=== PATIENT | male | born 1940 | race Caucasian/White ===

== ENCOUNTER 2017-11-15 12:11 | Inpatient (IN) | payer MEDICARE, OTHER ==
[2017-11-15] MEDS ORDERED: IV NORMAL SALINE 1000ML BAG 1,000 ML IV (12:48)
[2017-11-15] MEDS: IV NORMAL SALINE 1000ML BAG 1,000 ML IV ×6 (13:13→23:47)
[2017-11-15 13:21] LABS: ADD MAN DIFF? NO
[2017-11-15 13:28] LABS: BASO % 0 % (0-3); EOS % 0 % (0-3); HEMOGLOBIN 13.2 g/dL (13.0-17.5); LYMPH # 0.4 x10^3/uL (1.0-4.8); LYMPH % 7 % (24-48); MEAN CORPUSCULAR HEMOGLOBIN 30 pg (25-35); MEAN CORPUSCULAR HGB CONC 34 g/dL (31-37); MEAN CORPUSCULAR VOLUME 88 fL (79-100); MONO # 0.8 x10^3/uL (0.0-1.1); MONO % 13 % (0-9); NEUT # 4.9 x10^3uL (1.8-7.7); NEUT % 79 % (31-73); PLATELET COUNT 212 x10^3/uL (140-400); RED BLOOD COUNT 4.45 x10^6/uL (4.30-5.70); RED CELL DISTRIBUTION WIDTH 13.2 % (11.5-14.5); WHITE BLOOD COUNT 6.2 x10^3/uL (4.0-11.0)
[2017-11-15 13:39] LABS: ANION GAP 14 (6-14); BLOOD UREA NITROGEN 27 mg/dL (8-26); BUN/CREATININE RATIO 23 (6-20); CALCIUM 9.5 mg/dL (8.5-10.1); CARBON DIOXIDE 23 mmol/L (21-32); CHLORIDE 98 mmol/L (98-107); CREATININE 1.2 mg/dL (0.7-1.3); GLUCOSE 221 mg/dL (70-99); SODIUM 135 mmol/L (136-145)
[2017-11-15 13:43] LABS: POTASSIUM 4.6 mmol/L (3.5-5.1)
[2017-11-15 13:47] LABS: LACTIC ACID 2.7 mmol/L (0.4-2.0)
[2017-11-15 13:48] LABS: ALBUMIN 3.5 g/dL (3.4-5.0); ALBUMIN/GLOBULIN RATIO 0.9 (1.0-1.7); ALK PHOS 60 U/L (46-116); ALT (SGPT) 39 U/L (16-63); AST (SGOT) 57 U/L (15-37); LIPASE 136 U/L (73-393); TOTAL BILIRUBIN 0.5 mg/dL (0.2-1.0); TOTAL PROTEIN 7.4 g/dL (6.4-8.2)
[2017-11-15 14:34] LABS: BILIRUBIN,URINE NEGATIVE (NEG); CLARITY,URINE CLEAR; COLOR,URINE YELLOW; GLUCOSE,URINE 100 mg/dL (NEG); NITRITE,URINE NEGATIVE (NEG); PH,URINE 5.5; PROTEIN,URINE NEGATIVE (NEG-TRACE); UROBILINOGEN,URINE 0.2 mg/dL (0.2 mg/dL)
[2017-11-15 14:43] LABS: BACTERIA,URINE 0 /HPF (0-FEW); HYALINE CASTS, URINE MODERATE /HPF; RBC,URINE OCC /HPF (0-2); SQUAMOUS EPITHELIAL CELL,UR FEW /LPF; WBC,URINE OCC /HPF (0-4)
[2017-11-15 15:24] LABS: INFLUENZA A PATIENT NEGATIVE (NEGATIVE)
[2017-11-15 15:28] LABS: INFLUENZA B PATIENT POSITIVE (NEGATIVE); OBC FLU VALID
[2017-11-15] MEDS ORDERED: ONDANSETRON PF 4 MG/2 ML VIAL. IV (16:15)
[2017-11-15] MEDS ORDERED: ACETAMINOPHEN 325 MG TABLET. PO (16:15)
[2017-11-15] MEDS: OSELTAMIVIR 75 MG CAPSULE PO (16:54)
[2017-11-15 17:30] LABS: LACTIC ACID 3.7 mmol/L (0.4-2.0)
[2017-11-15 17:49] LABS: POC GLUCOSE 129 mg/dL (70-99)
[2017-11-15] MEDS ORDERED: DEXTROSE 50% 25 GM / 50ML DISP.SYRIN. IV (18:00)
[2017-11-15 21:02] LABS: POC GLUCOSE 178 mg/dL (70-99)
[2017-11-15] MEDS: ATORVASTATIN CALCIUM 20 MG TABLET PO (23:47)
[2017-11-15] MEDS: ENOXAPARIN 40 MG/0.4 ML SYRINGE. SQ (23:49)
[2017-11-16] MEDS: INSULIN DETEMIR 300 UNITS/3 ML INSULN.PEN. SQ ×2 (00:03→21:43)
[2017-11-16 05:33] LABS: ADD MAN DIFF? NO
[2017-11-16 06:25] LABS: BASO % 1 % (0-3); EOS % 1 % (0-3); HEMATOCRIT 32.6 % (39.0-53.0); HEMOGLOBIN 11.3 g/dL (13.0-17.5); LYMPH # 0.9 x10^3/uL (1.0-4.8); LYMPH % 21 % (24-48); MEAN CORPUSCULAR HEMOGLOBIN 31 pg (25-35); MEAN CORPUSCULAR HGB CONC 35 g/dL (31-37); MEAN CORPUSCULAR VOLUME 87 fL (79-100); MONO # 0.7 x10^3/uL (0.0-1.1); MONO % 17 % (0-9); NEUT # 2.6 x10^3uL (1.8-7.7); NEUT % 60 % (31-73); PLATELET COUNT 175 x10^3/uL (140-400); RED BLOOD COUNT 3.72 x10^6/uL (4.30-5.70); RED CELL DISTRIBUTION WIDTH 13.3 % (11.5-14.5); WHITE BLOOD COUNT 4.2 x10^3/uL (4.0-11.0)
[2017-11-16 06:31] LABS: ANION GAP 11 (6-14); BLOOD UREA NITROGEN 19 mg/dL (8-26); CALCIUM 8.3 mg/dL (8.5-10.1); CARBON DIOXIDE 25 mmol/L (21-32); CHLORIDE 102 mmol/L (98-107); CREATININE 1.1 mg/dL (0.7-1.3); GFR 65.3; GLUCOSE 146 mg/dL (70-99); POTASSIUM 3.3 mmol/L (3.5-5.1); SODIUM 138 mmol/L (136-145)
[2017-11-16 08:06] LABS: POC GLUCOSE 133 mg/dL (70-99)
[2017-11-16] MEDS: LISINOPRIL 20 MG TABLET PO (08:44)
[2017-11-16] MEDS: hydroCHLOROthiazide 25 MG TABLET PO (08:44)
[2017-11-16] MEDS: glipiZIDE 5 MG TABLET PO ×2 (08:45→17:34)
[2017-11-16] MEDS: FINASTERIDE 5 MG TABLET. PO (08:45)
[2017-11-16] MEDS: PANTOPRAZOLE 40 MG TABLET.DR. PO (08:46)
[2017-11-16] MEDS: OSELTAMIVIR 75 MG CAPSULE PO ×2 (08:46→19:56)
[2017-11-16] MEDS: IV NORMAL SALINE 1000ML BAG 1,000 ML IV ×2 (08:47→12:10)
[2017-11-16 12:05] LABS: POC GLUCOSE 91 mg/dL (70-99)
[2017-11-16 16:05] LABS: POC GLUCOSE 106 mg/dL (70-99)
[2017-11-16] MEDS: ATORVASTATIN CALCIUM 20 MG TABLET PO (19:57)
[2017-11-16] MEDS: BENZONATATE 100 MG CAPSULE. PO (19:57)
[2017-11-16] MEDS: ENOXAPARIN 40 MG/0.4 ML SYRINGE. SQ (19:57)
[2017-11-16 21:08] LABS: POC GLUCOSE 114 mg/dL (70-99)
[2017-11-17 05:02] LABS: ADD MAN DIFF? NO
[2017-11-17 05:36] LABS: BASO % 0 % (0-3); EOS # 0.1 x10^3/uL (0.0-0.7); EOS % 2 % (0-3); HEMOGLOBIN 11.9 g/dL (13.0-17.5); LYMPH # 1.2 x10^3/uL (1.0-4.8); LYMPH % 29 % (24-48); MEAN CORPUSCULAR HEMOGLOBIN 30 pg (25-35); MEAN CORPUSCULAR HGB CONC 35 g/dL (31-37); MEAN CORPUSCULAR VOLUME 87 fL (79-100); MONO # 0.5 x10^3/uL (0.0-1.1); MONO % 12 % (0-9); NEUT # 2.3 x10^3uL (1.8-7.7); NEUT % 58 % (31-73); PLATELET COUNT 176 x10^3/uL (140-400); RED BLOOD COUNT 3.92 x10^6/uL (4.30-5.70); RED CELL DISTRIBUTION WIDTH 13.6 % (11.5-14.5)
[2017-11-17 05:47] LABS: ANION GAP 12 (6-14); BLOOD UREA NITROGEN 15 mg/dL (8-26); CALCIUM 8.5 mg/dL (8.5-10.1); CARBON DIOXIDE 24 mmol/L (21-32); CHLORIDE 103 mmol/L (98-107); GFR 72.8; GLUCOSE 76 mg/dL (70-99); SODIUM 139 mmol/L (136-145)
[2017-11-17 07:32] LABS: POC GLUCOSE 91 mg/dL (70-99)
[2017-11-17] MEDS: PANTOPRAZOLE 40 MG TABLET.DR. PO (08:39)
[2017-11-17] MEDS: glipiZIDE 5 MG TABLET PO ×2 (08:39→16:59)
[2017-11-17] MEDS: hydroCHLOROthiazide 25 MG TABLET PO (08:42)
[2017-11-17] MEDS: OSELTAMIVIR 75 MG CAPSULE PO ×2 (08:43→20:40)
[2017-11-17] MEDS: FINASTERIDE 5 MG TABLET. PO (08:43)
[2017-11-17] MEDS: LISINOPRIL 20 MG TABLET PO (08:43)
[2017-11-17 12:07] LABS: POC GLUCOSE 102 mg/dL (70-99)
[2017-11-17] MEDS: IPRATRPIUM/ALBUTEROL 0.5/2.5MG 3 ML NEBU. NEB ×2 (15:54→20:19)
[2017-11-17 16:55] LABS: POC GLUCOSE 124 mg/dL (70-99)
[2017-11-17] MEDS: POTASSIUM CHLORIDE 20 MEQ TABLET.ER. PO (16:59)
[2017-11-17] MEDS: ATORVASTATIN CALCIUM 20 MG TABLET PO (20:40)
[2017-11-17] MEDS: ENOXAPARIN 40 MG/0.4 ML SYRINGE. SQ (20:40)
[2017-11-17 20:41] LABS: POC GLUCOSE 162 mg/dL (70-99)
[2017-11-17] MEDS: PHENYLEPH/MINERAL OIL/PETROLAT RECTAL OINTMENT 28GM TUBE. RC (20:41)
[2017-11-17] MEDS: INSULIN DETEMIR 300 UNITS/3 ML INSULN.PEN. SQ (20:45)
[2017-11-18 05:20] LABS: ADD MAN DIFF? NO
[2017-11-18 05:36] LABS: BASO % 0 % (0-3); EOS % 1 % (0-3); HEMATOCRIT 37.7 % (39.0-53.0); HEMOGLOBIN 12.9 g/dL (13.0-17.5); LYMPH # 0.9 x10^3/uL (1.0-4.8); LYMPH % 25 % (24-48); MEAN CORPUSCULAR HEMOGLOBIN 30 pg (25-35); MEAN CORPUSCULAR HGB CONC 34 g/dL (31-37); MEAN CORPUSCULAR VOLUME 87 fL (79-100); MONO # 0.4 x10^3/uL (0.0-1.1); MONO % 12 % (0-9); NEUT # 2.4 x10^3uL (1.8-7.7); NEUT % 63 % (31-73); PLATELET COUNT 201 x10^3/uL (140-400); RED BLOOD COUNT 4.32 x10^6/uL (4.30-5.70); RED CELL DISTRIBUTION WIDTH 13.3 % (11.5-14.5); WHITE BLOOD COUNT 3.8 x10^3/uL (4.0-11.0)
[2017-11-18 05:47] LABS: ANION GAP 10 (6-14); BLOOD UREA NITROGEN 17 mg/dL (8-26); CALCIUM 8.5 mg/dL (8.5-10.1); CARBON DIOXIDE 26 mmol/L (21-32); CHLORIDE 98 mmol/L (98-107); CREATININE 1.1 mg/dL (0.7-1.3); GFR 65.3; GLUCOSE 165 mg/dL (70-99); POTASSIUM 3.6 mmol/L (3.5-5.1); SODIUM 134 mmol/L (136-145)
[2017-11-18] MEDS: IPRATRPIUM/ALBUTEROL 0.5/2.5MG 3 ML NEBU. NEB ×2 (07:22→11:31)
[2017-11-18 07:28] LABS: POC GLUCOSE 130 mg/dL (70-99)
[2017-11-18] MEDS: OSELTAMIVIR 75 MG CAPSULE PO (08:36)
[2017-11-18] MEDS: FINASTERIDE 5 MG TABLET. PO (08:36)
[2017-11-18] MEDS: hydroCHLOROthiazide 25 MG TABLET PO (08:36)
[2017-11-18] MEDS: glipiZIDE 5 MG TABLET PO (08:39)
[2017-11-18] MEDS: LISINOPRIL 20 MG TABLET PO (08:39)
[2017-11-18] MEDS: PANTOPRAZOLE 40 MG TABLET.DR. PO (08:40)
== END 2017-11-18 12:34 | disposition home or self-care (01) | DRG 872 ==
LOC: ER 12:11 → 6 SOUTH 14:52
DX: A41.9 Sepsis, unspecified organism (principal); E86.0 Dehydration; E11.9 Type 2 diabetes mellitus without complications; J10.1 Influenza due to other identified influenza virus with other respiratory manifestations; E66.9 Obesity, unspecified; I10 Essential (primary) hypertension; N40.0 Benign prostatic hyperplasia without lower urinary tract symptoms; Z68.31 Body mass index [BMI] 31.0-31.9, adult; Z96.659 Presence of unspecified artificial knee joint; M54.5 Low back pain
CPT/HCPCS: 36415; 71045; 80048; 80053; 81001; 82962; 83605; 83690; 85025; 87040; 87804; 87804-59; 93005; 94640; 94760; 96360; 97161-GP; 97165-GO; 99285-25; J1650; J1815; J7030; J7620

== ENCOUNTER 2018-01-20 10:25 | Emergency (ER) | payer MEDICARE, OTHER | END 2018-01-20 13:38 | disposition home or self-care (01) | LOC: ER 10:25 | DX: S22.31XA Fracture of one rib, right side, initial encounter for closed fracture (principal); E11.9 Type 2 diabetes mellitus without complications; E78.00 Pure hypercholesterolemia, unspecified; I10 Essential (primary) hypertension; Z96.659 Presence of unspecified artificial knee joint; W01.198A Fall on same level from slipping, tripping and stumbling with subsequent striking against other object, initial encounter; Y93.89 Activity, other specified; Y92.89 Other specified places as the place of occurrence of the external cause; Y99.8 Other external cause status | CPT/HCPCS: 71101; 99284-25 ==

== ENCOUNTER → 2018-01-27 | Outpatient (CLI) | payer MEDICARE, OTHER ==
[2018-01-27 14:21] LABS: ADD MAN DIFF? NO
[2018-01-27 14:32] LABS: BILIRUBIN,URINE NEGATIVE (NEG); CLARITY,URINE CLEAR; COLOR,URINE YELLOW; GLUCOSE,URINE 500 mg/dL (NEG); NITRITE,URINE NEGATIVE (NEG); PH,URINE 5.5; PROTEIN,URINE NEGATIVE (NEG-TRACE); UROBILINOGEN,URINE 0.2 mg/dL (0.2 mg/dL)
[2018-01-27 14:36] LABS: BASO % 0 % (0-3); EOS # 0.1 x10^3/uL (0.0-0.7); EOS % 1 % (0-3); HEMATOCRIT 38.1 % (39.0-53.0); HEMOGLOBIN 13.2 g/dL (13.0-17.5); LYMPH # 1.8 x10^3/uL (1.0-4.8); LYMPH % 21 % (24-48); MEAN CORPUSCULAR HEMOGLOBIN 30 pg (25-35); MEAN CORPUSCULAR HGB CONC 35 g/dL (31-37); MEAN CORPUSCULAR VOLUME 88 fL (79-100); MONO # 0.7 x10^3/uL (0.0-1.1); MONO % 8 % (0-9); NEUT # 6.2 x10^3uL (1.8-7.7); NEUT % 70 % (31-73); PLATELET COUNT 287 x10^3/uL (140-400); RED BLOOD COUNT 4.34 x10^6/uL (4.30-5.70); RED CELL DISTRIBUTION WIDTH 13.1 % (11.5-14.5); WHITE BLOOD COUNT 8.8 x10^3/uL (4.0-11.0)
[2018-01-27 14:41] LABS: ALBUMIN 3.4 g/dL (3.4-5.0); ANION GAP 12 (6-14); BLOOD UREA NITROGEN 28 mg/dL (8-26); CALCIUM 8.7 mg/dL (8.5-10.1); CARBON DIOXIDE 24 mmol/L (21-32); CHLORIDE 101 mmol/L (98-107); CREATININE 1.3 mg/dL (0.7-1.3); GFR 53.8; GLUCOSE 336 mg/dL (70-99); POTASSIUM 4.3 mmol/L (3.5-5.1); SODIUM 137 mmol/L (136-145)
[2018-01-27 14:49] LABS: INR 1.1 (0.8-1.1); PARTIAL THROMBOPLASTIN TIME 32 SEC (24-38); PROTHROMBIN TIME PATIENT 14.1 SEC (11.7-14.0)
[2018-01-27 14:51] LABS: BACTERIA,URINE 0 /HPF (0-FEW); RBC,URINE 0 /HPF (0-2); SQUAMOUS EPITHELIAL CELL,UR OCC /LPF; WBC,URINE OCC /HPF (0-4)
[2018-01-27 15:54] LABS: SEDIMENTATION RATE 30 (0-15)
[2018-01-29 04:20] LABS: HEMOGLOBIN A1C 8.2 % (4.8-5.6)
[2018-01-29 06:21] LABS: MRSA BY PCR Negative (Negative)
== END | disposition home or self-care (01) ==
LOC: SURGPAT 13:56
DX: Z01.818 Encounter for other preprocedural examination (principal); M17.11 Unilateral primary osteoarthritis, right knee; E55.9 Vitamin D deficiency, unspecified; R79.89 Other specified abnormal findings of blood chemistry; R79.1 Abnormal coagulation profile
CPT/HCPCS: 36415; 80048; 81001; 82040; 82306; 83036; 85025; 85610; 85651; 85730; 87641

== ENCOUNTER 2018-02-11 06:56 | Inpatient (IN) | payer MEDICARE, OTHER ==
[2018-02-11] MEDS: HYDROcodone/APAP 7.5/325MG 1 TAB TABLET PO (06:45)
[2018-02-11] MEDS ORDERED: LIDOCAINE 1% PF 2 ML VIAL. ID (07:00)
[2018-02-11] MEDS ORDERED: MORPHINE SULFATE 2 MG/ML DISP.SYRIN. IV (07:00)
[2018-02-11] MEDS ORDERED: fentaNYL PF VIAL 100 MCG/2 ML VIAL IV ×3 (07:00→12:15)
[2018-02-11] MEDS ORDERED: HYDROmorphone 2 MG/ML VIAL IV (07:00)
[2018-02-11] MEDS ORDERED: ONDANSETRON PF 4 MG/2 ML VIAL. IV (07:00)
[2018-02-11] MEDS: IV RINGERS,LACTATED 1000ML 1,000 ML IV ×2 (07:58→12:13)
[2018-02-11] MEDS ORDERED: PROPOFOL 20 ML IV (08:01)
[2018-02-11] MEDS ORDERED: LIDOCAINE 2% PF Vial for OR 5 ML VIAL. (08:01)
[2018-02-11 08:02] LABS: POC GLUCOSE 158 mg/dL (70-99)
[2018-02-11] MEDS: CELECOXIB 200 MG CAPSULE. PO ×3 (09:00→21:00)
[2018-02-11] MEDS: TRANEXAMIC ACID 1,000 MG in IV NORMAL SALINE 50ML 50 ML INJ ×2 (10:01→11:10)
[2018-02-11] MEDS ORDERED: ONDANSETRON PF 4 MG/2 ML VIAL. (10:12)
[2018-02-11] MEDS: VANCOMYCIN 1 GM VIAL. (10:12)
[2018-02-11] MEDS: TOBRAMYCIN POWDER 1.2 GM VIAL. (10:12)
[2018-02-11] MEDS ORDERED: fentaNYL PF VIAL 100 MCG/2 ML VIAL (10:12)
[2018-02-11] MEDS: MORPHINE SULFATE 5 MG, KETOROLAC 30 MG, ROPIVacaine 0.5% PF 60 ML, EPINEPHrine 0.5 MG i... INT ART (10:12)
[2018-02-11] MEDS ORDERED: DEXAMETHASONE SOD PHOS 20 MG/5 ML VIAL. (10:12)
[2018-02-11] MEDS ORDERED: SEVOFLURANE > 120 MINUTES. IH (11:32)
[2018-02-11 12:08] LABS: POC GLUCOSE 202 mg/dL (70-99)
[2018-02-11] MEDS ORDERED: PROCHLORPERAZINE 5 MG TABLET. PO (12:15)
[2018-02-11] MEDS ORDERED: PROCHLORPERAZINE 10 MG/2 ML VIAL. IV (12:15)
[2018-02-11] MEDS ORDERED: traMADol 50 MG TABLET PO ×2 (12:15)
[2018-02-11] MEDS ORDERED: 0.9 % SODIUM CHLORIDE 10 ML DISP.SYRIN. IV (12:15)
[2018-02-11] MEDS ORDERED: METOCLOPRAMIDE HCL 10 MG/2 ML VIAL. IV (12:15)
[2018-02-11] MEDS ORDERED: MORPHINE SULFATE 4 MG/ML DISP.SYRIN. IV ×3 (12:15)
[2018-02-11] MEDS ORDERED: DEXTROSE 50% 25 GM / 50ML DISP.SYRIN. IV ×2 (12:15→19:00)
[2018-02-11] MEDS ORDERED: oxyCODONE/APAP 5/325 1 TAB TABLET PO (12:15)
[2018-02-11] MEDS ORDERED: MORPHINE SULFATE 10 MG/ML VIAL. IV (12:15)
[2018-02-11] MEDS ORDERED: ACETAMINOPHEN 325 MG TABLET. PO (12:15)
[2018-02-11] MEDS ORDERED: HYDROcodone/APAP 10/325 1 TAB TABLET PO (12:15)
[2018-02-11] MEDS ORDERED: CALCIUM CARBONATE 500 MG TAB.CHEW PO (12:15)
[2018-02-11] MEDS ORDERED: diphenhydrAMINE 50 MG/ML VIAL IV (12:15)
[2018-02-11] MEDS: PROCHLORPERAZINE 10 MG/2 ML VIAL. IV (12:34)
[2018-02-11] MEDS: fentaNYL PF VIAL 100 MCG/2 ML VIAL IV ×2 (12:35→13:23)
[2018-02-11] MEDS: IV DEXTROSE 5 %-0.45 % NACL 1,000 ML IV (14:39)
[2018-02-11 16:31] LABS: POC GLUCOSE 301 mg/dL (70-99)
[2018-02-11] MEDS: FERROUS SULFATE 325 MG TABLET. PO (17:00)
[2018-02-11] MEDS: glipiZIDE 5 MG TABLET PO (17:01)
[2018-02-11] MEDS: KETOROLAC 30 MG, BUPIVACAINE MPF 0.25% 20 ML, EPINEPHrine 0.5 MG in TOTAL VOLUME SYRING... INT ART (17:51)
[2018-02-11] MEDS: oxyCODONE/APAP 7.5/325 1 TAB TABLET PO ×2 (17:55→23:21)
[2018-02-11 20:49] LABS: POC GLUCOSE 289 mg/dL (70-99)
[2018-02-11] MEDS: ASPIRIN ENTERIC COATED 325 MG TABLET.DR. PO (20:54)
[2018-02-11] MEDS: INSULIN GLARGINE 300 UNITS/3 ML INSULN.PEN. SQ (20:59)
[2018-02-12] MEDS: IV DEXTROSE 5 %-0.45 % NACL 1,000 ML IV ×3 (01:00→21:00)
[2018-02-12 05:25] LABS: HEMATOCRIT 31.4 % (39.0-53.0); HEMOGLOBIN 10.7 g/dL (13.0-17.5); MEAN CORPUSCULAR HGB CONC 34 g/dL (31-37)
[2018-02-12] MEDS: KETOROLAC 30 MG, BUPIVACAINE MPF 0.25% 20 ML, EPINEPHrine 0.5 MG in TOTAL VOLUME SYRING... INT ART (05:54)
[2018-02-12] MEDS ORDERED: MAGNESIUM HYDROXIDE 2,400 MG/30 ML ORAL.SUSP. PO (06:00)
[2018-02-12 06:48] LABS: POC GLUCOSE 151 mg/dL (70-99)
[2018-02-12] MEDS: CELECOXIB 200 MG CAPSULE. PO ×3 (07:12→21:12)
[2018-02-12] MEDS: PANTOPRAZOLE 40 MG TABLET.DR. PO (07:13)
[2018-02-12] MEDS: glipiZIDE 5 MG TABLET PO ×2 (07:33→17:04)
[2018-02-12] MEDS: FERROUS SULFATE 325 MG TABLET. PO ×2 (07:33→17:03)
[2018-02-12] MEDS: ASPIRIN ENTERIC COATED 325 MG TABLET.DR. PO ×2 (07:33→21:11)
[2018-02-12] MEDS: FLUTICASONE 50MCG/NASAL SPRAY 16GM BOTTLE. NS (07:35)
[2018-02-12] MEDS: INSULIN LISPRO 300 UNITS/3 ML INSULN.PEN. SQ ×3 (07:38→17:00)
[2018-02-12] MEDS: oxyCODONE/APAP 7.5/325 1 TAB TABLET PO ×4 (08:48→21:11)
[2018-02-12] MEDS: CETIRIZINE HCL 10 MG TABLET. PO (08:49)
[2018-02-12] MEDS: FINASTERIDE 5 MG TABLET. PO (08:49)
[2018-02-12] MEDS: MULTIVITAMIN with MINERAL TABLET. PO (08:49)
[2018-02-12] MEDS: SENNOSIDES/DOCUSATE 8.6/50MG TABLET. PO (08:49)
[2018-02-12] MEDS: ATORVASTATIN CALCIUM 20 MG TABLET PO (08:49)
[2018-02-12 11:39] LABS: POC GLUCOSE 106 mg/dL (70-99)
[2018-02-12] MEDS: hydroCHLOROthiazide 25 MG TABLET PO (12:41)
[2018-02-12] MEDS: LISINOPRIL 20 MG TABLET PO (12:41)
[2018-02-12] MEDS ORDERED: BISACODYL 10 MG SUPP.RECT. PR (16:00)
[2018-02-12 16:56] LABS: POC GLUCOSE 126 mg/dL (70-99)
[2018-02-12 21:17] LABS: POC GLUCOSE 112 mg/dL (70-99)
[2018-02-12] MEDS: INSULIN GLARGINE 300 UNITS/3 ML INSULN.PEN. SQ (21:21)
[2018-02-13] MEDS: IV DEXTROSE 5 %-0.45 % NACL 1,000 ML IV (02:58)
[2018-02-13] MEDS: oxyCODONE/APAP 7.5/325 1 TAB TABLET PO (03:43)
[2018-02-13 04:43] LABS: HEMATOCRIT 29.6 % (39.0-53.0); HEMOGLOBIN 10.4 g/dL (13.0-17.5); MEAN CORPUSCULAR HGB CONC 35 g/dL (31-37)
[2018-02-13] MEDS: glipiZIDE 5 MG TABLET PO ×2 (07:30→16:46)
[2018-02-13] MEDS: PANTOPRAZOLE 40 MG TABLET.DR. PO (07:30)
[2018-02-13] MEDS: INSULIN LISPRO 300 UNITS/3 ML INSULN.PEN. SQ ×3 (08:00→17:28)
[2018-02-13] MEDS: FERROUS SULFATE 325 MG TABLET. PO ×2 (08:00→16:43)
[2018-02-13 08:13] LABS: POC GLUCOSE 93 mg/dL (70-99)
[2018-02-13] MEDS: ASPIRIN ENTERIC COATED 325 MG TABLET.DR. PO ×2 (09:00→20:49)
[2018-02-13] MEDS: FINASTERIDE 5 MG TABLET. PO (09:00)
[2018-02-13] MEDS: SENNOSIDES/DOCUSATE 8.6/50MG TABLET. PO (09:00)
[2018-02-13] MEDS: hydroCHLOROthiazide 25 MG TABLET PO ×2 (09:00)
[2018-02-13] MEDS: ATORVASTATIN CALCIUM 20 MG TABLET PO (09:00)
[2018-02-13] MEDS: MULTIVITAMIN with MINERAL TABLET. PO (09:00)
[2018-02-13] MEDS: FLUTICASONE 50MCG/NASAL SPRAY 16GM BOTTLE. NS (09:00)
[2018-02-13] MEDS: LISINOPRIL 20 MG TABLET PO (09:00)
[2018-02-13] MEDS: CETIRIZINE HCL 10 MG TABLET. PO (09:00)
[2018-02-13] MEDS: CELECOXIB 200 MG CAPSULE. PO ×2 (09:00→20:48)
[2018-02-13 11:43] LABS: POC GLUCOSE 130 mg/dL (70-99)
[2018-02-13] MEDS: HYDROcodone/APAP 7.5/325MG 1 TAB TABLET PO ×2 (12:59→20:49)
[2018-02-13 16:47] LABS: POC GLUCOSE 153 mg/dL (70-99)
[2018-02-13] MEDS: ZOLPIDEM 5 MG TABLET. PO (20:48)
[2018-02-13] MEDS: INSULIN GLARGINE 300 UNITS/3 ML INSULN.PEN. SQ (20:53)
[2018-02-13 20:56] LABS: POC GLUCOSE 168 mg/dL (70-99)
[2018-02-14 04:33] LABS: HEMOGLOBIN 10.4 g/dL (13.0-17.5); MEAN CORPUSCULAR HGB CONC 35 g/dL (31-37)
[2018-02-14 07:04] LABS: POC GLUCOSE 92 mg/dL (70-99)
[2018-02-14] MEDS: INSULIN LISPRO 300 UNITS/3 ML INSULN.PEN. SQ ×2 (08:00→12:00)
[2018-02-14] MEDS: FLUTICASONE 50MCG/NASAL SPRAY 16GM BOTTLE. NS (08:00)
[2018-02-14] MEDS: SENNOSIDES/DOCUSATE 8.6/50MG TABLET. PO (08:00)
[2018-02-14] MEDS: glipiZIDE 5 MG TABLET PO (08:01)
[2018-02-14] MEDS: CETIRIZINE HCL 10 MG TABLET. PO (08:01)
[2018-02-14] MEDS: MULTIVITAMIN with MINERAL TABLET. PO (08:01)
[2018-02-14] MEDS: CELECOXIB 200 MG CAPSULE. PO (08:01)
[2018-02-14] MEDS: ATORVASTATIN CALCIUM 20 MG TABLET PO (08:02)
[2018-02-14] MEDS: FINASTERIDE 5 MG TABLET. PO (08:02)
[2018-02-14] MEDS: hydroCHLOROthiazide 25 MG TABLET PO (08:02)
[2018-02-14] MEDS: PANTOPRAZOLE 40 MG TABLET.DR. PO (08:02)
[2018-02-14] MEDS: FERROUS SULFATE 325 MG TABLET. PO (08:02)
[2018-02-14] MEDS: ASPIRIN ENTERIC COATED 325 MG TABLET.DR. PO (08:02)
[2018-02-14] MEDS: oxyCODONE/APAP 7.5/325 1 TAB TABLET PO ×2 (09:41→12:52)
[2018-02-14] MEDS: MAGNESIUM HYDROXIDE 2,400 MG/30 ML ORAL.SUSP. PO (10:30)
[2018-02-14] MEDS: LISINOPRIL 20 MG TABLET PO (12:52)
== END 2018-02-14 14:42 | disposition home or self-care (01) | DRG 470 ==
LOC: OPSVCIP 06:56 → 4 SOUTHEST 13:25
PROVIDERS: Orthopaedic Surgery
PROC: 0SRC0J9 Replacement of Right Knee Joint with Synthetic Substitute, Cemented, Open Approach (ICD-10-PCS; principal; 2018-02-11 09:35)
DX: M17.11 Unilateral primary osteoarthritis, right knee (principal); E11.9 Type 2 diabetes mellitus without complications; I10 Essential (primary) hypertension
CPT/HCPCS: 36415; 73560; 82962; 85014; 85018; 86850; 86900; 86901; 88305; 88311; 97110-GO; 97116-GP; 97150-GP; 97162-GP; 97165-GO; 97530-GP; 97535-GO; A7015; C1713; J0171; J0690; J0780; J1100; J1815; J1885; J2270; J2405; J2704; J2795; J3010; J3260; J3370; J3490; J7030; J7120

== ENCOUNTER 2018-08-27 13:34 | Emergency (ER) | payer MEDICARE, OTHER ==
[~2018-08-27] VITALS: Ht 190.5 cm; Wt 113.4 kg
[~2018-08-27 13:34] MED LIST: ASPI325T11 PO; CELE200C PO; CEPH-264 PO; CETI10TA22 PO; CHOL500016 PO; ERGO500027 PO; FERR325T14 PO; FINA5TAB4 PO; FLUT9.9S NS; GLIP10TA13 PO; HYDR-3164 PO; INSU100I13 SQ; LISI1TAB7 PO; LOVA40TA2 PO; METF10007 PO; OMEP20TA8 PO; OSEL75CA PO; OXYC-323 PO; PHEN-318 PO
--- NOTE | 2018-08-27 14:12 | PHYS DOC ---
Past Medical History Past Medical History: Diabetes-Type II, High Cholesterol, Hypertension Past Surgical History: Knee Replacement, Other Additional Past Surgical Histo: PARATHYROID GLAND REMOVAL,TOE Alcohol Use: None Drug Use: None Adult General Chief Complaint Chief Complaint: MECHANICAL FALL HPI HPI Patient is a 77 year old male who presents with was doing yard work this afternoon when he was pulling a limb out of a tree and the branch gave way and he fell backward and hit his head on gravel. Patient states he does not know if he has LOC the fall was unwitnessed. Patient denies blood thinners. He is ambulatory with a steady gait. Patient only complains of head pain a 1 out of 10. He does have a 0.5 cm puncture from a piece of gravel to the mid back of his head there are no foreign bodies seen and patient's states that she did wash it out. Review of Systems Review of Systems Constitutional: Denies fever or chills [] Eyes: Denies change in visual acuity, redness, or eye pain [] HENT: Denies nasal congestion or sore throat [] Respiratory: Denies cough or shortness of breath [] Cardiovascular: No additional information not addressed in HPI [] GI: Denies abdominal pain, nausea, vomiting, bloody stools or diarrhea [] : Denies dysuria or hematuria [] Musculoskeletal: Denies back pain or joint pain [] Integument: 0.5cm puncture from a piece of gravel to the back of head. Small pink abrasion to right flank. Denies rash or skin lesions [] Neurologic: Headache. Denies focal weakness or sensory changes [] All other systems were reviewed and found to be within normal limits, except as documented in this note. Allergies Allergies Allergies Coded Allergies Type Severity Reaction Last Updated Verified No Known Drug Allergies 02/11/18 No Physical Exam Physical Exam Constitutional: Well developed, well nourished, no acute distress, non-toxic appearance. [] HENT: Normocephalic, atraumatic, bilateral external ears normal, oropharynx moist, no oral exudates, nose normal. [] Eyes: PERRLA, EOMI, conjunctiva normal, no discharge. [] Neck: Normal range of motion, no tenderness, supple, no stridor. [] Cardiovascular:Heart rate regular rhythm, no murmur [] Lungs & Thorax: Bilateral breath sounds clear to auscultation [] Abdomen: Bowel sounds normal, soft, no tenderness, no masses, no pulsatile masses. [] Skin: 0.5cm puncture wound to back of head with scant bleeding, pink abrasion to right flank. Warm, dry, no erythema, no rash. [] Back: No tenderness, no CVA tenderness. [] Extremities: No tenderness, no cyanosis, no clubbing, ROM intact, no edema. [] Neurologic: Alert and oriented X 3, normal motor function, normal sensory function, no focal deficits noted. [] Psychologic: Affect normal, judgement normal, mood normal. [] Current Patient Data Vital Signs Vital Signs Date Time Temp Pulse Resp B/P (MAP) Pulse Ox O2 Delivery O2 Flow Rate FiO2 08/27/18 15:30 88 20 96 08/27/18 13:55 97.7 126/81 (96) Room Air 97.7 Lab Values Laboratory Tests Test 08/27/18 16:00 Urine Collection Type Void Urine Color Yellow Urine Clarity Cloudy Urine pH 7.0 Urine Specific [place] 1.015 Urine Protein Negative mg/dL (NEG-TRACE) Urine Glucose (UA) Negative mg/dL (NEG) Urine Ketones (Stick) Negative mg/dL (NEG) Urine Blood Negative (NEG) Urine Nitrite Negative (NEG) Urine Bilirubin Negative (NEG) Urine Urobilinogen Dipstick 0.2 mg/dL (0.2 mg/dL) Urine Leukocyte Esterase Negative (NEG) Urine RBC 0 /HPF (0-2) Urine WBC Occ /HPF (0-4) Urine Squamous Epithelial Cells Few /LPF Urine Bacteria Few /HPF (0-FEW) Urine Mucus Slight /LPF EKG EKG [] Radiology/Procedures Radiology/Procedures ct head cervical spine Impressions: [facility] [address] [place], [place] [id number] IMAGING REPORT Signed PATIENT: ANA LUISA SANDOVAL ACCOUNT: [id number] : 1940 LOCATION: ER AGE: 77 SEX: M EXAM STATUS: REG ER ORD. PHYSICIAN: BIANCA ZAMORA SIGNAL MAINTAINER REASON: FALL BACKWARD, UNWITNESSED, HIT HEAD, UNSURE OF LOC PROCEDURE: CT HEAD AND CERVICAL SPINE WO CT of the head without contrast, 08/27/2018: HISTORY: Fall, injury There is moderate cerebral atrophy. The ventricles are mildly enlarged on a compensatory basis. There is no shift of the midline structures. There is no evidence of acute intracranial hemorrhage or mass effect. IMPRESSION: 1. Cerebral atrophy. 2. No acute intracranial abnormality is detected. CT of the cervical spine without contrast, 08/27/2018: Noncontrast scans were obtained with multiplanar reconstructions produced. There is moderate disc space narrowing and marginal spurring throughout the mid and lower cervical spine. There are moderate degenerative changes involving multiple facet joints bilaterally. There is mild posterior disc protrusion at C4-5 which in conjunction with spurring is causing mild central spinal stenosis at that level and to lesser degree at C5-6 and C6-7. There is considerable right foraminal stenosis at C6-7. No acute fracture or dislocation is identified. IMPRESSION: 1. Moderate multilevel degenerative change. 2. No acute bony abnormality is detected. PQRS Compliance Statement: One or more of the following individualized dose reduction techniques were utilized for this examination: 1. Automated exposure control 2. Adjustment of the mA and/or kV according to patient size 3. Use of iterative reconstruction technique Electronically signed by: Luis Burgess MD (08/27/2018 3:10 PM) [facility] DICTATED and SIGNED BY: LUIS BURGESS MD DATE: 08/27/18 1501 Course & Med Decision Making Course & Med Decision Making Patient is a 77 year old male who presents with was doing yard work this afternoon when he was pulling a limb out of a tree and the branch gave way and he fell backward and hit his head on gravel. Patient states he does not know if he has LOC the fall was unwitnessed. Patient denies blood thinners. He is ambulatory with a steady gait. Patient only complains of head pain a 1 out of 10. He does have a 0.5 cm puncture from a piece of gravel to the mid back of his head there are no foreign bodies seen and patient's states that she did wash it out. Alert and oriented. Patient denies any dizziness, chest pain, shortness of air, nausea, vomiting, abdominal pain, pain anywhere else in his body. He has no bruising, deformity, or pain with palpation to any part of his body head to toe. Patient has no bony spinal pain, deformity, bruising with palpation to his cervical spine, thoracic spine, lumbar spine, rib cage, extremities, maxillofacial. Patient has intact range of motion in his cervical spine, thoracic spine, lumbar spine. Patient has slight pink abrasion to his right flank. It is no tenderness to his flanks or bruising. Patient refuses any pain medications. Patient states he has a history of high cholesterol, diabetes type 2, vertigo, pyelonephritis, fractures of the ribs, arthritis, hematuria. Patient denies taking any blood thinners. States he takes naproxen regularly for arthritis pains. PERRLA. Neurologically intact and denies any numbness or tingling. Patient's medication list consists of hydrocodone, aspirin, Celebrex, Zyrtec, iron, finasteride, glipizide, insulin, lisinopril, HCTZ, metformin, omeprazole, Percocet. CT head and cervical spine show no acute findings and there were no foreign objects seen upon CT. I did call the radiologist to make sure he did not see any foreign bodies of the head CT. Urine is negative for any blood or signs of infection. The 0.5cm superficial puncture wound to the back of the head is cleaned and rinsed with Betadine and normal saline. Since patient is diabetic I will give him a prophylactic antibiotic. Patient should keep the area clean and covered if he can have it is so small. Patient should return here in 48 hours for wound recheck. Dragon Disclaimer Dragon Disclaimer This electronic medical record was generated, in whole or in part, using a voice recognition dictation system. Departure Departure Impression: Primary Impression: Fall Additional Impression: Puncture wound Disposition: 01 HOME, SELF-CARE Condition: STABLE Referrals: KRYSTYNA MATT (PCP) Patient Instructions: Fall Prevention and Home Safety, Head Injury, Adult, Puncture Wound Additional Instructions: Follow primary care in 48 hours and return to the ED in 48 hours so that we can check urine to make sure it is healing. Scripts Cephalexin (KEFLEX) 500 Mg Capsule 500 MG PO QID for 7 Days, #28 CAP Prov: BIANCA ZAMORA SIGNAL MAINTAINER 08/27/18 Problem Qualifiers Primary Impression: Fall Encounter type: initial encounter Qualified Codes: W19.XXXA - Unspecified fall, initial encounter BIANCA ZAMORA SIGNAL MAINTAINER Aug 27, 2018 14:12
--- NOTE | 2018-08-27 15:13 | RAD ---
CT of the head without contrast, 08/27/2018: HISTORY: Fall, injury There is moderate cerebral atrophy. The ventricles are mildly enlarged on a compensatory basis. There is no shift of the midline structures. There is no evidence of acute intracranial hemorrhage or mass effect. IMPRESSION: 1. Cerebral atrophy. 2. No acute intracranial abnormality is detected. CT of the cervical spine without contrast, 08/27/2018: Noncontrast scans were obtained with multiplanar reconstructions produced. There is moderate disc space narrowing and marginal spurring throughout the mid and lower cervical spine. There are moderate degenerative changes involving multiple facet joints bilaterally. There is mild posterior disc protrusion at C4-5 which in conjunction with spurring is causing mild central spinal stenosis at that level and to lesser degree at C5-6 and C6-7. There is considerable right foraminal stenosis at C6-7. No acute fracture or dislocation is identified. IMPRESSION: 1. Moderate multilevel degenerative change. 2. No acute bony abnormality is detected. PQRS Compliance Statement: One or more of the following individualized dose reduction techniques were utilized for this examination: 1. Automated exposure control 2. Adjustment of the mA and/or kV according to patient size 3. Use of iterative reconstruction technique Electronically signed by: Luis Burgess MD (08/27/2018 3:10 PM) [facility]
[2018-08-27 16:11] LABS: BILIRUBIN,URINE NEGATIVE (NEG); CLARITY,URINE CLOUDY; COLOR,URINE YELLOW; NITRITE,URINE NEGATIVE (NEG); PROTEIN,URINE NEGATIVE (NEG-TRACE); UROBILINOGEN,URINE 0.2 mg/dL (0.2 mg/dL)
[2018-08-27] MEDS ORDERED: CEPH-264 PO (16:18)
[2018-08-27 16:21] LABS: BACTERIA,URINE FEW /HPF (0-FEW); RBC,URINE 0 /HPF (0-2); SQUAMOUS EPITHELIAL CELL,UR FEW /LPF; WBC,URINE OCC /HPF (0-4)
[2018-08-27 16:30] VITALS: BP 128/78
[2018-08-27] MEDS ORDERED: DIPHTH,PERTUSS(ACELL),TET TOX 0.5 ML DISP.SYRIN. VAX IM ONE (17:15)
== END 2018-08-27 17:20 | disposition home or self-care (01) ==
LOC: ER 13:34
DX: S01.83XA Puncture wound without foreign body of other part of head, initial encounter (principal); E78.00 Pure hypercholesterolemia, unspecified; E11.9 Type 2 diabetes mellitus without complications; I10 Essential (primary) hypertension; Z96.659 Presence of unspecified artificial knee joint; W18.09XA Striking against other object with subsequent fall, initial encounter; Y93.H2 Activity, gardening and landscaping; Y92.89 Other specified places as the place of occurrence of the external cause; Y99.8 Other external cause status
CPT/HCPCS: 70450; 72125; 81001; 90471; 90715; 99284-25

== ENCOUNTER → 2019-09-15 | Outpatient (CLI) | payer MEDICARE, OTHER ==
[~2019-09-15] MED LIST changes: +LISI1TAB20 PO; -LISI1TAB7 PO; -OXYC-323 PO; +OXYC1TAB15 PO
--- NOTE | 2019-09-15 16:15 | KCIC ---
LUMBAR SPINE WO CONTRAST History: Weakness bilateral legs. Progressive. Technique: Multiplanar, multi sequential MR imaging was performed of the lumbar spine. Comparison: None Findings: Normal vertebral body height and alignment. No fracture. Conus terminates at the normal location. No evidence of nerve root clumping. L1-L2: No canal or neuroforaminal narrowing. L2-L3: Minimal posterior disc bulge. Mild facet arthropathy. No canal or neuroforaminal narrowing. L3-L4: Minimal posterior disc bulge. Moderate facet arthropathy. No canal or neuroforaminal narrowing. L4-L5: Small posterior disc bulge. Moderate facet arthropathy. No canal or neuroforaminal narrowing. L5-S1: Small posterior disc bulge with superimposed central disc protrusion. Moderate facet arthropathy. No canal or neuroforaminal narrowing. Impression: 1. Mild multilevel lumbar spondylosis. No significant canal or neuroforaminal narrowing. Electronically signed by: Simon Fletcher DO (09/15/2019 4:12 PM) [id number]
== END | disposition home or self-care (01) ==
LOC: KCIC MRI 13:04
PROVIDERS: ATTEND Orthopaedic Surgery
DX: M47.816 Spondylosis without myelopathy or radiculopathy, lumbar region (principal); M51.27 Other intervertebral disc displacement, lumbosacral region; M12.88 Other specific arthropathies, not elsewhere classified, other specified site; R29.898 Other symptoms and signs involving the musculoskeletal system
CPT/HCPCS: 72148

== ENCOUNTER → 2019-09-29 | Outpatient (CLI) | payer MEDICARE, OTHER ==
--- NOTE | 2019-09-29 14:05 | KCIC ---
C-spine 3 views. HISTORY: Cervicalgia, M 54.2 AP, lateral, odontoid and swimmer's views were taken of the cervical spine. C-spine is in normal alignment. C7 is incompletely evaluated on either the lateral or swimmer's view. C7 is grossly normal alignment. There is degenerative disc disease at C5-6 and C6-7 with disc space narrowing and spurring. There is also spurring at C4-5 and to a lesser extent C3-4. There is mild facet arthritis at multiple levels. There is no acute fracture. Odontoid is intact on the open mouth view. IMPRESSION: 1. Degenerative disc disease and spurring in the cervical spine. 2. No acute fracture. Electronically signed by: Eduardo England MD (09/29/2019 2:02 PM) [id number]
== END | disposition home or self-care (01) ==
LOC: KCIC 09:46
PROVIDERS: ATTEND Family Medicine
DX: M50.322 Other cervical disc degeneration at C5-C6 level (principal); M48.02 Spinal stenosis, cervical region
CPT/HCPCS: 72040

== ENCOUNTER 2021-08-02 07:58 | Inpatient (IN) | payer MEDICARE, OTHER ==
[~2021-08-02] VITALS: Ht 193 cm; Wt 111.0 kg
[~2021-08-02 07:58] MED LIST changes: -CETI10TA22 PO; +CETI10TA74 PO; -LISI1TAB20 PO; +LISI1TAB39 PO
[2021-08-02 08:24] LABS: BASO % 0 % (0-3); EOS % 0 % (0-3); HEMATOCRIT 42.3 % (39.0-53.0); HEMOGLOBIN 14.3 g/dL (13.0-17.5); LYMPH # 1.7 x10^3/uL (1.0-4.8); LYMPH % 19 % (24-48); MEAN CORPUSCULAR HEMOGLOBIN 30 pg (25-35); MEAN CORPUSCULAR HGB CONC 34 g/dL (31-37); MEAN CORPUSCULAR VOLUME 89 fL (79-100); MONO # 0.9 x10^3/uL (0.0-1.1); MONO % 10 % (0-9); NEUT # 6.4 x10^3/uL (1.8-7.7); NEUT % 71 % (31-73); PLATELET COUNT 274 x10^3/uL (140-400); RED BLOOD COUNT 4.77 x10^6/uL (4.30-5.70); RED CELL DISTRIBUTION WIDTH 13.7 % (11.5-14.5); WHITE BLOOD COUNT 9.1 x10^3/uL (4.0-11.0)
--- NOTE | 2021-08-02 08:35 | RAD ---
XR CHEST 1V CLINICAL INDICATIONS: Reason: cough / Spl. Instructions: / History: COMPARISON: January 20, 2018. Findings: No acute lung infiltrate or pleural effusion or pulmonary edema or lung mass or pneumothora x is seen. The heart size, pulmonary vasculature, mediastinum and both hang are stable. IMPRESSION: No acute radiographic abnormality is seen. Electronically signed by: Usman Pinzon MD (08/02/2021 8:33 AM) [id number]
[2021-08-02 08:41] LABS: CALCIUM 8.9 mg/dL (8.5-10.1); CREATININE 1.2 mg/dL (0.7-1.3); GFR 58.6; POTASSIUM 3.6 mmol/L (3.5-5.1)
[2021-08-02 08:48] LABS: ALBUMIN 3.4 g/dL (3.4-5.0); ALBUMIN/GLOBULIN RATIO 0.9 (1.0-1.7); MAGNESIUM 1.6 mg/dL (1.8-2.4); TOTAL BILIRUBIN 0.5 mg/dL (0.2-1.0); TOTAL PROTEIN 7.3 g/dL (6.4-8.2)
--- NOTE | 2021-08-02 09:04 | RAD ---
INDICATION: Reason: dizziness / Spl. Instructions: / History: COMPARISON: August 2018 TECHNIQUE: Axial CT images obtained through the head without intravenous contrast. One or more of the following individualized dose reduction techniques were utilized for this examinat ion: 1. Automated exposure control; 2. Adjustment of the mA and/or kV according to patient size; 3 . Use of iterative reconstruction technique. FINDINGS: No intracranial hemorrhage. No significant midline shift. Ventricles and sulci are globally prominent. Scattered foci of low attenuation within the white matter. Calcific atherosclerosis. IMPRESSION: * No acute intracranial hemorrhage. * Scattered regions of low attenuation within the white matter. Non-specific in nature but a common finding and frequently secondary to small vessel ischemic disease. Electronically signed by: Bang Pace MD (08/02/2021 9:02 AM) [id number]
[2021-08-02] MEDS ORDERED: MECLIZINE HCL 12.5 MG TABLET. PO ONE (09:15)
[2021-08-02] MEDS ORDERED: MAGNESIUM SULFATE 2GM 50 ML IV ONE (09:45)
--- NOTE | 2021-08-02 11:44 | PHYS DOC ---
Past Medical History Past Medical History: Diabetes-Type II, High Cholesterol, Hypertension Past Surgical History: No Surgical History Additional Past Surgical Histo: PARATHYROID GLAND REMOVAL,TOE Smoking Status: Never Smoker Alcohol Use: None Drug Use: None General Adult EDM: Chief Complaint: DIZZY/LIGHT HEADED HPI: HPI: Patient is a 80 year old male who present to ER for evaluation of dizziness started last night. Patient said the room was spinning around him, symptoms got worse with upright position or head movement. Patient denies any headache, no nausea vomiting. Patient denies any abdominal pain, no chest pain. Patient said he got influenza vaccine last week, over the weekend he had body ache, flulike symptoms, upper respiratory congestion, nonproductive cough. Patient went to see her doctor on Saturday, he was tested negative for COVID-19. Patient said he was fully vaccinated for COVID-19 also. Patient said his doctor put him on some medication for his upper respiratory infection, and he felt like after taking the medication he had dizziness problem. Patient said about 5 years ago he had the same episode like this. Patient said whenever you get up and walk he was unsteady on his feet. Patient denies any weakness or numbness anywhere. Patient has history of hypertension and diabetic. Review of Systems: Review of Systems: Constitutional: Denies fever or chills. [] Eyes: Denies change in visual acuity. [] HENT: Denies nasal congestion or sore throat. [] Respiratory: Denies cough or shortness of breath. [] Cardiovascular: Denies chest pain or edema. [] GI: Denies abdominal pain, nausea, vomiting, bloody stools or diarrhea. [] : Denies dysuria. [] Musculoskeletal: Denies back pain or joint pain. [] Integument: Denies rash. [] Neurologic: Denies headache, focal weakness or sensory changes. Positive for dizziness. Endocrine: Denies polyuria or polydipsia. [] Lymphatic: Denies swollen glands. [] Psychiatric: Denies depression or anxiety. [] Heart Score: C/O Chest Pain: N/A Risk Factors: Risk Factors: DM, Current or recent (<one month) smoker, HTN, HLP, family history of CAD, obesity. Risk Scores: Score 0 - 3: 2.5% MACE over next 6 weeks - Discharge Home Score 4 - 6: 20.3% MACE over next 6 weeks - Admit for Clinical Observation Score 7 - 10: 72.7% MACE over next 6 weeks - Early Invasive Strategies Current Medications: Current Medications Medications (Trade) Dose Ordered Sig/Jenny Start Time Stop Time Status Last Admin Dose Admin Magnesium Sulfate 50 ml @ 25 mls/hr 1X ONCE 08/02/21 09:45 08/02/21 11:44 08/02/21 09:22 25 MLS/HR Meclizine HCl (Antivert) 25 mg 1X ONCE 08/02/21 09:15 08/02/21 09:16 DC 08/02/21 09:22 25 MG Allergies: Allergies: Allergies Coded Allergies Type Severity Reaction Last Updated Verified No Known Drug Allergies 08/02/21 No Physical Exam: PE: Constitutional: Well developed, well nourished, no acute distress, non-toxic appearance. [] HENT: Normocephalic, atraumatic, bilateral external ears normal, oropharynx moist, no oral exudates, nose normal. [] Eyes: PERRLA, EOMI, conjunctiva normal, no discharge. [] Neck: Normal range of motion, no tenderness, supple, no stridor. [] Cardiovascular:Heart rate regular rhythm, no murmur [] Lungs & Thorax: Bilateral breath sounds clear to auscultation [] Abdomen: Bowel sounds normal, soft, no tenderness, no masses, no pulsatile masses. [] Skin: Warm, dry, no erythema, no rash. [] Back: No tenderness, no CVA tenderness. [] Extremities: No tenderness, no cyanosis, no clubbing, ROM intact, no edema. [] Neurologic: Alert and oriented X 3, normal motor function, normal sensory function, no focal deficits noted. [] Psychologic: Affect normal, judgement normal, mood normal. [] Current Patient Data: Labs: Laboratory Tests Test 08/02/21 08:10 White Blood Count 9.1 x10^3/uL (4.0-11.0) Red Blood Count 4.77 x10^6/uL (4.30-5.70) Hemoglobin 14.3 g/dL (13.0-17.5) Hematocrit 42.3 % (39.0-53.0) Mean Corpuscular Volume 89 fL (79-100) Mean Corpuscular Hemoglobin 30 pg (25-35) Mean Corpuscular Hemoglobin Concent 34 g/dL (31-37) Red Cell Distribution Width 13.7 % (11.5-14.5) Platelet Count 274 x10^3/uL (140-400) Neutrophils (%) (Auto) 71 % (31-73) Lymphocytes (%) (Auto) 19 % (24-48) L Monocytes (%) (Auto) 10 % (0-9) H Eosinophils (%) (Auto) 0 % (0-3) Basophils (%) (Auto) 0 % (0-3) Neutrophils # (Auto) 6.4 x10^3/uL (1.8-7.7) Lymphocytes # (Auto) 1.7 x10^3/uL (1.0-4.8) Monocytes # (Auto) 0.9 x10^3/uL (0.0-1.1) Eosinophils # (Auto) 0.0 x10^3/uL (0.0-0.7) Basophils # (Auto) 0.0 x10^3/uL (0.0-0.2) Sodium Level 136 mmol/L (136-145) Potassium Level 3.6 mmol/L (3.5-5.1) Chloride Level 99 mmol/L (98-107) Carbon Dioxide Level 24 mmol/L (21-32) Anion Gap 13 (6-14) Blood Urea Nitrogen 23 mg/dL (8-26) Creatinine 1.2 mg/dL (0.7-1.3) Estimated GFR (Cockcroft-Gault) 58.6 BUN/Creatinine Ratio 19 (6-20) Glucose Level 311 mg/dL (70-99) H Calcium Level 8.9 mg/dL (8.5-10.1) Magnesium Level 1.6 mg/dL (1.8-2.4) L Total Bilirubin 0.5 mg/dL (0.2-1.0) Aspartate Amino Transferase (AST) 26 U/L (15-37) Alanine Aminotransferase (ALT) 25 U/L (16-63) Alkaline Phosphatase 67 U/L (46-116) Troponin I Quantitative < 0.017 ng/mL (0.000-0.055) RV-Ojs-Z-Type Natriuretic Peptide 186 pg/mL (0-449) Total Protein 7.3 g/dL (6.4-8.2) Albumin 3.4 g/dL (3.4-5.0) Albumin/Globulin Ratio 0.9 (1.0-1.7) L Laboratory Tests 08/02/21 08:10 Laboratory Tests 08/02/21 08:10 Vital Signs: Vital Signs Date Time Temp Pulse Resp B/P (MAP) Pulse Ox O2 Delivery O2 Flow Rate FiO2 08/02/21 11:25 100 17 183/90 (121) 96 Room Air 08/02/21 08:11 97.8 97.8 EKG: EKG: EKG was done at 917, heart rate 88 bpm, sinus rhythm, no ST segment elevation, normal axis Radiology/Procedures: Radiology/Procedures: [][address] [id number] IMAGING REPORT Signed PATIENT: ANA LUISA SANDOVAL ACCOUNT: [id number] : 1940 LOCATION: ER AGE: 80 SEX: M EXAM STATUS: REG ER ORD. PHYSICIAN: ALEXANDRU PETTY DO REASON: dizziness PROCEDURE: CT HEAD WO CONTRAST INDICATION: Reason: dizziness / Spl. Instructions: / History: COMPARISON: August 2018 TECHNIQUE: Axial CT images obtained through the head without intravenous contrast. One or more of the following individualized dose reduction techniques were utilized for this examination: 1. Automated exposure control; 2. Adjustment of the mA and/or kV according to patient size; 3. Use of iterative reconstruction technique. FINDINGS: No intracranial hemorrhage. No significant midline shift. Ventricles and sulci are globally prominent. Scattered foci of low attenuation within the white matter. Calcific atherosclerosis. IMPRESSION: * No acute intracranial hemorrhage. * Scattered regions of low attenuation within the white matter. Non-specific in nature but a common finding and frequently secondary to small vessel ischemic disease. Electronically signed by: Mukund Russ MD (08/02/2021 9:02 AM) [facility]- [id number] DICTATED and SIGNED BY: MUKUND RUSS MD DATE: 08/02/21 [id number] [id number] [place] [address] IMAGING REPORT Signed PATIENT: ANA LUISA SANDOVAL ACCOUNT: [id number] : 1940 LOCATION: ER AGE: 80 SEX: M EXAM STATUS: PRE ER ORD. PHYSICIAN: ALEXANDRU PETTY DO REASON: cough PROCEDURE: CHEST AP ONLY XR CHEST 1V CLINICAL INDICATIONS: Reason: cough / Spl. Instructions: / History: COMPARISON: January 20, 2018. Findings: No acute lung infiltrate or pleural effusion or pulmonary edema or lung mass or pneumothorax is seen. The heart size, pulmonary vasculature, mediastinum and both hang are stable. IMPRESSION: No acute radiographic abnormality is seen. Electronically signed by: Eloisa Pinzon MD (08/02/2021 8:33 AM) [id number] DICTATED and SIGNED BY: ELOISA PINZON MD DATE: 08/02/21 [id number] Course & Med Decision Making: Course & Med Decision Making Pertinent Labs and Imaging studies reviewed. (See chart for details) Patient was given meclizine in the ED, he feel much better. However attempt to get him to sit up and walk TWICE BUT every time he felt dizzy and fell back onto the bed again. We will get admitted to hospital for further evaluation and treatment. Discussed with Dr. Abdullahi who agreed to admit the patient Dragmckenna Disclaimer: Chrystal Disclaimer: This electronic medical record was generated, in whole or in part, using a voice recognition dictation system. Departure Departure Impression: Primary Impression: Vertigo Disposition: ADMITTED INPATIENT Admitting Physician: ASHLEY (DR. CORREIA) Condition: STABLE Referrals: KRYSTYNA MATT (PCP) ALEXANDRU PETTY DO Aug 02, 2021 11:44
[2021-08-02] MEDS ORDERED: ONDANSETRON PF 4 MG/2 ML VIAL. IVP PRN ×2 (12:30→14:30)
[2021-08-02 13:40] VITALS: BP 170/79
[2021-08-02] MEDS ORDERED: BENZ-8 PO (13:49)
[2021-08-02] MEDS ORDERED: LISI1TAB35 PO (13:49)
[2021-08-02] MEDS ORDERED: GUAI12003 PO (13:49)
[2021-08-02] MEDS ORDERED: PRED20TA PO (13:49)
[2021-08-02] MEDS ORDERED: MECLIZINE HCL 12.5 MG TABLET. PO PRN (14:30)
[2021-08-02] MEDS ORDERED: DEXTROSE 50% 25 GM / 50ML DISP.SYRIN. IV PRN (14:30)
[2021-08-02] MEDS ORDERED: BENZONATATE 100 MG CAPSULE. PO PRN (14:30)
--- NOTE | 2021-08-02 14:31 | PDOC1 ---
History and Physical Date of Admission Date of Admission DATE: 08/02/21 TIME: 14:30 Identification/Chief Complaint Chief Complaint vertigo Source Source: Patient History of Present Illness History of Present Illness Mr Ayers is a 80 year old male w/ PMHx DM2, HLD, HTN who present to ER for evaluation of dizziness and gait instability that began on 08/02/21 in the evening. Initially noted the room spinning when he sat up too quickly. He was able to sleep but awoke today with the symptoms worse and unable to resolve on their own. Worse with head movement. Patient denies any headache, no nausea vomiting. He did have myalgias and flulike symptoms, upper respiratory congestion, nonproductive cough on 07/29 and 07/30 and went to see PCP on 07/31, was tested negative for COVID-19 and given prednisone. He just started the prednisone today. No recent travel, no CP or SOB. In ED was unable to stand without falling back into bed and had nausea after this. Fully vaccinated against COVID-19. WBC 9.1, Hb 14.3, platelets 274, NA 136, K3.6, BUN 23, CR 1.2, glucose 311, calcium 8.9, magnesium 1.6, LFTs within normal laboratory limits, troponin 0, NT proBNP 186, TSH 1.713, B12 256 EKG was done at 917, heart rate 88 bpm, sinus rhythm, no ST segment elevation, normal axis Chest radiograph and CT head with no acute abnormalities Admitted for further care. Past Medical History Cardiovascular: HTN Hepatobiliary: No pertinent hx Psych: No pertinent hx Musculoskeletal: low back pain Renal/: No pertinent hx Endocrine: Diabetes Past Surgical History Past Surgical History: Other (Parathyroidectomy) Family History Family History: Diabetes Social History Smoke: No ALCOHOL: none Drugs: None Current Problem List Problem List Problems Medical Problems: (1) Vertigo Status: Acute Current Medications Current Medications Current Medications Meclizine HCl (Antivert) 25 mg 1X ONCE PO Last administered on 08/02/21at 09:22; Start 08/02/21 at 09:15; Stop 08/02/21 at 09:16; Status DC Magnesium Sulfate 50 ml @ 25 mls/hr 1X ONCE IV Last administered on 08/02/21at 09:22; Start 08/02/21 at 09:45; Stop 08/02/21 at 11:44; Status DC Ondansetron HCl (Zofran) 4 mg PRN Q8HRS PRN IVP NAUSEA/VOMITING; Start 08/02/21 at 12:30; Stop 08/03/21 at 12:29 Active Scripts Active Reported Mucinex (Guaifenesin) 1,200 Mg Tbmp.12hr 1 Tab PO BID Prednisone 20 Mg Tablet 2 Tab PO DAILY Benzonatate 100 Mg Capsule 1 Cap PO TID PRN Lisinopril-Hctz 10-12.5 Mg Tab (Lisinopril/Hydrochlorothiazide) 1 Each Tablet 1 Tab PO DAILY Zyrtec (Cetirizine Hcl) 10 Mg Tablet 1 Tab PO DAILY Omeprazole 20 Mg Tablet.dr 20 Mg PO DAILY Glipizide 10 Mg Tablet 10 Mg PO BID Finasteride 5 Mg Tablet 5 Mg PO DAILY Lovastatin 40 Mg Tablet 40 Mg PO BID Metformin Hcl 1,000 Mg Tablet 1,000 Mg PO BIDWMEALS Lantus Solostar (Insulin Glargine,Hum.rec.anlog) 100 Unit/1 Ml Insuln.pen 43 Unit SQ HS Allergies Allergies: Coded Allergies: No Known Drug Allergies (Unverified , 08/02/21) ROS General: YES: Fatigue, Malaise; No: Chills, Night Sweats, Appetite, Other PSYCHOLOGICAL ROS: No: Anxiety, Behavioral Disorder, Concentration difficultie, Decreased libido, Depression, Disorientation, Hallucinations, Hostility, Irritablity, Memory difficulties, Mood Swings, Obsessive thoughts, Physical abuse, Sexual abuse, Sleep disturbances, Suicidal ideation, Other Eyes: Yes Double vision; No Blurry vision, No Decreased vision, No Dry eyes, No Excessive tearing, No Eye Pain, No Itchy Eyes, No Loss of vision, No Photophobia, No Scotomata, No Uses contacts, No Uses glasses, No Other HEENT: YES: Heacaches, Visual Changes; No: Hearing change, Nasal congestion, Nasal discharge, Oral lesions, Sinus pain, Sore Throat, Epistaxis, Sneezing, Snoring, Tinnitus, Vertigo, Vocal changes, Other ALLERGY AND IMMUNOLOGY: YES: Nasal Congestion, Post Nasal Drip; No: Hives, Insect Bite Sensitivity, Itchy/Watery Eyes, Seasonal Allergies, Other Hematological and Lymphatic: No: Bleeding Problems, Blood Clots, Blood Transfusions, Brusing, Night Sweats, Pallor, Swollen Lymph Nodes, Other ENDOCRINE: No: Breast Changes, Galactorrhea, Hair Pattern Changes, Hot Flashes, Malaise/lethargy, Mood Swings, Palpitations, Polydipsia/polyuria, Skin Changes, Temperature Intolerance, Unexpected Weight Changes, Other Breast: No New/Changing Breast Lumps, No Nipple changes, No Nipple discharge, No Other Respiratory: YES: Cough; No: Hemoptysis, Orthopnea, Pleuritic Pain, Shortness of breath, SOB with excertion, Sputum Changes, Stridor, Tachypnea, Wheezing, Other Cardiovascular: No Chest Pain, No Palpitations, No Orthopnea, No Paroxysmal Noc. Dyspnea, No Edema, No Lt Headedness, No Other Gastrointestinal: No Nausea, No Vomiting, No Abdominal Pain, No Diarrhea, No Constipation, No Melena, No Hematochezia, No Other Genitourinary: No Dysuria, No Frequency, No Incontinence, No Hematuria, No Retention, No Discharge, No Urgency, No Pain, No Flank Pain, No Other, No , No , No , No , No , No , No Musculoskeletal: Yes Gait Disturbance; No Joint Pain, No Joint Stiffness, No Joint Swelling, No Muscle Pain, No Muscular Weakness, No Pain In:, No Swelling In:, No Other Neurological: Yes Dizziness, Yes Gait Disturbance; No Behavorial Changes, No Bowel/Bladder ControlChng, No Confusion, No Headaches, No Impaired Coord/balance, No Memory Loss, No Numbness/Tingling, No Seizures, No Speech Problems, No Tremors, No Visual Changes, No Weakness, No Other Skin: No Dry Skin, No Eczema, No Hair Changes, No Lumps, No Mole Changes, No Mottling, No Nail Changes, No Pruritus, No Rash, No Skin Lesion Changes, No Other, No Acne Physical Exam General: Alert, Oriented X3, Cooperative, No acute distress HEENT: Atraumatic, PERRLA, EOMI, Mucous membr. moist/pink, Other (horizontal nystagmus on peg hallpike) Lungs: Clear to auscultation, Normal air movement Heart: S1S2, RRR, no thrills, no rubs, no gallops, no murmurs Abdomen: Normal bowel sounds, Soft, No tenderness, No hepatosplenomegaly, No masses Extremities: No clubbing, No cyanosis, No edema, Normal pulses, No tenderness/swelling Skin: No rashes, No breakdown, No significant lesion Neuro: Normal speech, Strength at 5/5 X4 ext, Normal tone, Sensation intact, Cranial nerves 3-12 NL, Reflexes 2+, Other (Gait listing to left, not lifting to rotate right leg ) Psych/Mental Status: Mental status NL, Mood NL Vitals Vitals Vital Signs Date Time Temp Pulse Resp B/P (MAP) Pulse Ox O2 Delivery O2 Flow Rate FiO2 08/02/21 13:40 97.8 94 17 170/79 (109) 100 Room Air 97.8 Labs Labs Laboratory Tests Test 08/02/21 08:10 White Blood Count 9.1 x10^3/uL (4.0-11.0) Red Blood Count 4.77 x10^6/uL (4.30-5.70) Hemoglobin 14.3 g/dL (13.0-17.5) Hematocrit 42.3 % (39.0-53.0) Mean Corpuscular Volume 89 fL (79-100) Mean Corpuscular Hemoglobin 30 pg (25-35) Mean Corpuscular Hemoglobin Concent 34 g/dL (31-37) Red Cell Distribution Width 13.7 % (11.5-14.5) Platelet Count 274 x10^3/uL (140-400) Neutrophils (%) (Auto) 71 % (31-73) Lymphocytes (%) (Auto) 19 % (24-48) Monocytes (%) (Auto) 10 % (0-9) Eosinophils (%) (Auto) 0 % (0-3) Basophils (%) (Auto) 0 % (0-3) Neutrophils # (Auto) 6.4 x10^3/uL (1.8-7.7) Lymphocytes # (Auto) 1.7 x10^3/uL (1.0-4.8) Monocytes # (Auto) 0.9 x10^3/uL (0.0-1.1) Eosinophils # (Auto) 0.0 x10^3/uL (0.0-0.7) Basophils # (Auto) 0.0 x10^3/uL (0.0-0.2) Sodium Level 136 mmol/L (136-145) Potassium Level 3.6 mmol/L (3.5-5.1) Chloride Level 99 mmol/L (98-107) Carbon Dioxide Level 24 mmol/L (21-32) Anion Gap 13 (6-14) Blood Urea Nitrogen 23 mg/dL (8-26) Creatinine 1.2 mg/dL (0.7-1.3) Estimated GFR (Cockcroft-Gault) 58.6 BUN/Creatinine Ratio 19 (6-20) Glucose Level 311 mg/dL (70-99) Calcium Level 8.9 mg/dL (8.5-10.1) Magnesium Level 1.6 mg/dL (1.8-2.4) Total Bilirubin 0.5 mg/dL (0.2-1.0) Aspartate Amino Transf (AST/SGOT) 26 U/L (15-37) Alanine Aminotransferase (ALT/SGPT) 25 U/L (16-63) Alkaline Phosphatase 67 U/L (46-116) Troponin I Quantitative < 0.017 ng/mL (0.000-0.055) AQ-Gjd-J-Type Natriuretic Peptide 186 pg/mL (0-449) Total Protein 7.3 g/dL (6.4-8.2) Albumin 3.4 g/dL (3.4-5.0) Albumin/Globulin Ratio 0.9 (1.0-1.7) Laboratory Tests Test 08/02/21 08:10 White Blood Count 9.1 x10^3/uL (4.0-11.0) Red Blood Count 4.77 x10^6/uL (4.30-5.70) Hemoglobin 14.3 g/dL (13.0-17.5) Hematocrit 42.3 % (39.0-53.0) Mean Corpuscular Volume 89 fL (79-100) Mean Corpuscular Hemoglobin 30 pg (25-35) Mean Corpuscular Hemoglobin Concent 34 g/dL (31-37) Red Cell Distribution Width 13.7 % (11.5-14.5) Platelet Count 274 x10^3/uL (140-400) Neutrophils (%) (Auto) 71 % (31-73) Lymphocytes (%) (Auto) 19 % (24-48) Monocytes (%) (Auto) 10 % (0-9) Eosinophils (%) (Auto) 0 % (0-3) Basophils (%) (Auto) 0 % (0-3) Neutrophils # (Auto) 6.4 x10^3/uL (1.8-7.7) Lymphocytes # (Auto) 1.7 x10^3/uL (1.0-4.8) Monocytes # (Auto) 0.9 x10^3/uL (0.0-1.1) Eosinophils # (Auto) 0.0 x10^3/uL (0.0-0.7) Basophils # (Auto) 0.0 x10^3/uL (0.0-0.2) Sodium Level 136 mmol/L (136-145) Potassium Level 3.6 mmol/L (3.5-5.1) Chloride Level 99 mmol/L (98-107) Carbon Dioxide Level 24 mmol/L (21-32) Anion Gap 13 (6-14) Blood Urea Nitrogen 23 mg/dL (8-26) Creatinine 1.2 mg/dL (0.7-1.3) Estimated GFR (Cockcroft-Gault) 58.6 BUN/Creatinine Ratio 19 (6-20) Glucose Level 311 mg/dL (70-99) Calcium Level 8.9 mg/dL (8.5-10.1) Magnesium Level 1.6 mg/dL (1.8-2.4) Total Bilirubin 0.5 mg/dL (0.2-1.0) Aspartate Amino Transf (AST/SGOT) 26 U/L (15-37) Alanine Aminotransferase (ALT/SGPT) 25 U/L (16-63) Alkaline Phosphatase 67 U/L (46-116) Troponin I Quantitative < 0.017 ng/mL (0.000-0.055) OF-Vzp-J-Type Natriuretic Peptide 186 pg/mL (0-449) Total Protein 7.3 g/dL (6.4-8.2) Albumin 3.4 g/dL (3.4-5.0) Albumin/Globulin Ratio 0.9 (1.0-1.7) Images Images CT head: No intracranial hemorrhage. No significant midline shift. Ventricles and sulci are globally prominent. Scattered foci of low attenuation within the white matter. Calcific atherosclerosis. IMPRESSION: * No acute intracranial hemorrhage. * Scattered regions of low attenuation within the white matter. Non-specific in nature but a common finding and frequently secondary to small vessel ischemic disease. Chest radiograph: No acute lung infiltrate or pleural effusion or pulmonary edema or lung mass or pneumothorax is seen. The heart size, pulmonary vasculature, mediastinum and both hang are stable. IMPRESSION: No acute radiographic abnormality is seen. VTE Prophylaxis Ordered VTE Prophylaxis Devices: Yes VTE Pharmacological Prophylaxi: Yes Assessment/Plan Assessment/Plan A/P: Vertigo - left sided BPPV on examination, somewhat improved with positioning, but on gait testing he frequently lists to the left and does not pick his right foot completely. Mixed picture of peripheral and central. PT and neurology consults Hypomagnesemia - likely due to diuretic use. Will replace Low vitamin b12 - cyanocobalamin injection DM2 - with hyperglycemia - will place on high sliding scale, cont home meds HLD - cont home meds HTN - cont home meds URTI - on prednisone, will complete course FEN - ADA diet PPX - lovenox FULL CODE Dispo - observation for above Justifications for Admission Other Justification FABIENNE CORREIA MD Aug 02, 2021 14:30
[2021-08-02 15:00] VITALS: BP 146/77
[2021-08-02] MEDS: hydroCHLOROthiazide 12.5 MG CAPSULE PO SCH (15:10)
[2021-08-02] MEDS: LISINOPRIL 10 MG TABLET PO SCH (15:10)
[2021-08-02] MEDS: glipiZIDE 5 MG TABLET PO SCH (15:10)
[2021-08-02 15:30] VITALS: BP 167/68
[2021-08-02] MEDS: INSULIN LISPRO 300 UNITS/3 ML VIAL. SQ SCH (17:14)
--- NOTE | 2021-08-02 17:25 | EKG ---
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
--- NOTE | 2021-08-02 17:28 | EKG ---
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
[2021-08-02] MEDS ORDERED: CYANOCOBALAMIN (VITAMIN B-12) 1,000 MCG/ML VIAL. IM ONE (17:30)
[2021-08-02] MEDS ORDERED: METOPROLOL IV PUSH 5 MG/5 ML VIAL. IVP PRN (18:00)
[2021-08-02] MEDS: METOPROLOL IV PUSH 5 MG/5 ML VIAL. IVP SCH (18:02)
[2021-08-02 19:59] VITALS: BP 138/86
[2021-08-02] MEDS: ATORVASTATIN CALCIUM 20 MG TABLET PO SCH (20:33)
[2021-08-02] MEDS ORDERED: INSULIN GLARGINE SYRINGE. SQ SCH (21:00)
[2021-08-02 23:01] VITALS: BP 142/77
[2021-08-03] VITALS (7 sets, daily range): BP systolic 113–178; BP diastolic 56–87
[2021-08-03] MEDS: METOPROLOL IV PUSH 5 MG/5 ML VIAL. IVP SCH ×4 (06:00→16:57)
[2021-08-03] MEDS: PANTOPRAZOLE 40 MG TABLET.DR. PO SCH (06:11)
[2021-08-03] MEDS: glipiZIDE 5 MG TABLET PO SCH ×2 (06:11→16:57)
[2021-08-03 08:49] LABS: CALCIUM 8.8 mg/dL (8.5-10.1); GFR 72.3; POTASSIUM 3.7 mmol/L (3.5-5.1)
[2021-08-03] MEDS ORDERED: LISINOPRIL 10 MG TABLET PO SCH (09:00)
[2021-08-03] MEDS ORDERED: hydroCHLOROthiazide 12.5 MG CAPSULE PO SCH (09:00)
[2021-08-03] MEDS: LISINOPRIL 10 MG TABLET PO SCH (09:03)
[2021-08-03] MEDS: FINASTERIDE 5 MG TABLET. PO SCH (09:04)
[2021-08-03] MEDS: predniSONE 20 MG TABLET PO SCH (09:04)
[2021-08-03] MEDS: hydroCHLOROthiazide 12.5 MG CAPSULE PO SCH (09:04)
[2021-08-03] MEDS: CETIRIZINE HCL 10 MG TABLET. PO SCH (09:04)
[2021-08-03] MEDS: INSULIN LISPRO 300 UNITS/3 ML VIAL. SQ SCH ×3 (09:05→16:57)
--- NOTE | 2021-08-03 11:31 | NUR ---
SS following for discharge planning. SS reviewed pt chart and discussed with pt RN. Pt is from home with spouse and is currently on room air. Pt on IV Metoprolol. PT ordered and currently recommending acute rehabilitation. Neurology consulted. SS will continue to follow for discharge planning.
--- NOTE | 2021-08-03 12:57 | PDOC2 ---
NEUROLOGY CONSULT Date of Service DOS: DATE: 08/03/21 TIME: 12:51 Reason for Consult Reason for Consult: Dizziness Referring Physician Referring Physician: Dr. Bailey Source Source: Chart review, Patient History of Present Illness History of Present Illness The patient is a 80-year-old right-handed male who noticed dizziness and d ifficulty walking beginning yesterday. He describes room spinning vertigo and a retropulsion. He has not lost consciousness. He has chronic tinnitus and hearing loss. He did have an episode of vertigo about 5 or 6 years ago which resolved in the emergency department at the time. He denies dysarthria, dysphagia, diplopia, or weakness. He does have diabetes with neuropathy. He has had recent myalgias and flu symptoms and his primary care physician tested him for COVID-19 and gave him a course of prednisone. He is feeling better today. I discussed with her Alvarez, physical therapist, who found with Frenzel lenses that the patient did have some left beating torsional normal switching to horizontal nystagmus. Family History Family History: Diabetes Social History Smoke: No ALCOHOL: none Past Medical History Cardiovascular: HTN, Hyperlipidemia GI: GERD Musculoskeletal: Osteoarthritis Endocrine: Diabetes Past Surgical History Past Surgical History: Cataract Removal, Total knee replacement (Bilateral), Other (Parathyroidectomy, hammertoe repair) Family History Family History: CAD Social History Social History , non-smoker, no alcohol, retired Current Medications Current Medications Current Medications Meclizine HCl (Antivert) 25 mg 1X ONCE PO Last administered on 08/02/21at 09:22; Start 08/02/21 at 09:15; Stop 08/02/21 at 09:16; Status DC Magnesium Sulfate 50 ml @ 25 mls/hr 1X ONCE IV Last administered on 08/02/21at 09:22; Start 08/02/21 at 09:45; Stop 08/02/21 at 11:44; Status DC Ondansetron HCl (Zofran) 4 mg PRN Q8HRS PRN IVP NAUSEA/VOMITING; Start 08/02/21 at 12:30; Stop 08/02/21 at 14:30; Status DC Ondansetron HCl (Zofran) 4 mg PRN Q4HRS PRN IVP NAUSEA/VOMITING; Start 08/02/21 at 14:30 Benzonatate (Tessalon Perle) 100 mg PRN TID PRN PO COUGH; Start 08/02/21 at 14:30 Cetirizine HCl (ZyrTEC) 10 mg DAILY PO Last administered on 08/03/21at 09:04; Start 08/03/21 at 09:00 Finasteride (Proscar) 5 mg DAILY PO Last administered on 08/03/21at 09:04; Start 08/03/21 at 09:00 Prednisone (Prednisone) 40 mg DAILY PO Last administered on 08/03/21at 09:04; Start 08/03/21 at 09:00 Glipizide (Glucotrol) 10 mg BIDBFRMEAL PO Last administered on 08/03/21at 06 :11; Start 08/02/21 at 16:30 Guaifenesin (Mucinex) 1,200 mg BID PO Last administered on 08/03/21at 09:04; Start 08/02/21 at 21:00 Insulin Glargine (Lantus Syringe) 43 unit QHS SQ Last administered on 08/02/21at 20:35; Start 08/02/21 at 21:00 Lisinopril (Prinivil) 10 mg DAILY PO ; Start 08/03/21 at 09:00; Stop 08/02/21 at 14:53; Status DC Atorvastatin Calcium (Lipitor) 20 mg QHS PO Last administered on 08/02/21at 20:33; Start 08/02/21 at 21:00 Pantoprazole Sodium (Protonix) 40 mg DAILYAC PO Last administered on 08/03/21at 06:11; Start 08/03/21 at 07:30 Insulin Human Lispro (HumaLOG) 0-9 UNITS TIDWMEALS SQ Last administered on 08/03/21at 11:58; Start 08/02/21 at 17:00 Dextrose (Dextrose 50%-Water Syringe) 12.5 gm PRN Q15MIN PRN IV SEE COMMENTS; Start 08/02/21 at 14:30 Meclizine HCl (Antivert) 12.5 mg PRN Q6HRS PRN PO DIZZINESS; Start 08/02/21 at 14:30 Hydrochlorothiazide (Microzide) 12.5 mg DAILY PO ; Start 08/03/21 at 09:00; Stop 08/02/21 at 14:53; Status DC Hydrochlorothiazide (Microzide) 12.5 mg DAILY PO Last administered on 08/03/21at 09:04; Start 08/02/21 at 15:00 Lisinopril (Prinivil) 10 mg DAILY PO Last administered on 08/03/21at 09:03; Start 08/02/21 at 15:00 Cyanocobalamin (Vitamin B-12 Inj) 1,000 mcg 1X ONCE IM Last administered on 08/02/21at 17:17; Start 08/02/21 at 17:30; Stop 08/02/21 at 17:31; Status DC Metoprolol Tartrate (Lopressor Vial) 5 mg Q6HRS IVP Last administered on 08/03/21at 11:57; Start 08/02/21 at 18:00 Metoprolol Tartrate (Lopressor Vial) 5 mg PRN Q5MIN PRN IVP TACHYCARDIA; Start 08/02/21 at 18:00 Active Scripts Active Reported Mucinex (Guaifenesin) 1,200 Mg Tbmp.12hr 1 Tab PO BID Prednisone 20 Mg Tablet 2 Tab PO DAILY Benzonatate 100 Mg Capsule 1 Cap PO TID PRN Lisinopril-Hctz 10-12.5 Mg Tab (Lisinopril/Hydrochlorothiazide) 1 Each Tablet 1 Tab PO DAILY Zyrtec (Cetirizine Hcl) 10 Mg Tablet 1 Tab PO DAILY Omeprazole 20 Mg Tablet.dr 20 Mg PO DAILY Glipizide 10 Mg Tablet 10 Mg PO BID Finasteride 5 Mg Tablet 5 Mg PO DAILY Lovastatin 40 Mg Tablet 40 Mg PO BID Metformin Hcl 1,000 Mg Tablet 1,000 Mg PO BIDWMEALS Lantus Solostar (Insulin Glargine,Hum.rec.anlog) 100 Unit/1 Ml Insuln.pen 43 Unit SQ HS Allergies Allergies: Coded Allergies: No Known Drug Allergies (Unverified , 08/02/21) ROS Review of System Negative for fever, chills, weight loss, shortness of breath, chest pain, indigestion, hematochezia, melena, and dysuria. Full 14-point review of systems is negative. Physical Exam Physical Examination General: Well-developed, well-nourished, white male, in no acute distress HEENT: Normocephalic andatraumatic. Tympanic membranes clear.Temporal arteriespulsatile and nontender. Neck: Supple without bruit, no meningismus Musculoskeletal: Stability:see neurologic. Gait exam:see neurologic. Tone:see neurologic.Strength:see neurologic. Neurological: Mental Status:intact, orientation, memory, attention span/concentration, language, fund of knowledge normal. Cranial Nerves:Pupils equal and reactive to light, extraocular movements areintact, visual avila are full to confrontation. Facial sensation is normal. There is no facial asymmetry. Vestibulo-ocular reflex is intact. No nystagmus on Lyla-Hallpike, he does complain of dizziness when I stand him up. Palate elevates and tongue protrudes in midline. All other cranial related problems are negative except as mentioned before.Reflexes:2+ and symmetric with flexor plantar responses. Motor:5/5 strength with normal tone and bulk. Coordination:Finger-nose finger and [id number]-pywt testing are normal. Rapid alternating movements and fine finger movements are intact. Gait:takes 1 or 2 steps then feels dizzy and had to sit down. Sensory:Stocking loss Vitals VITALS Vital Signs Date Time Temp Pulse Resp B/P (MAP) Pulse Ox O2 Delivery O2 Flow Rate FiO2 08/03/21 11:57 109 162/72 08/03/21 08:00 Room Air 08/03/21 07:00 98.1 16 93 98.1 Labs Labs Laboratory Tests Test 08/02/21 08:10 08/02/21 17:06 08/02/21 20:20 08/03/21 06:55 White Blood Count 9.1 x10^3/uL (4.0-11.0) Red Blood Count 4.77 x10^6/uL (4.30-5.70) Hemoglobin 14.3 g/dL (13.0-17.5) Hematocrit 42.3 % (39.0-53.0) Mean Corpuscular Volume 89 fL (79-100) Mean Corpuscular Hemoglobin 30 pg (25-35) Mean Corpuscular Hemoglobin Concent 34 g/dL (31-37) Red Cell Distribution Width 13.7 % (11.5-14.5) Platelet Count 274 x10^3/uL (140-400) Neutrophils (%) (Auto) 71 % (31-73) Lymphocytes (%) (Auto) 19 % (24-48) Monocytes (%) (Auto) 10 % (0-9) Eosinophils (%) (Auto) 0 % (0-3) Basophils (%) (Auto) 0 % (0-3) Neutrophils # (Auto) 6.4 x10^3/uL (1.8-7.7) Lymphocytes # (Auto) 1.7 x10^3/uL (1.0-4.8) Monocytes # (Auto) 0.9 x10^3/uL (0.0-1.1) Eosinophils # (Auto) 0.0 x10^3/uL (0.0-0.7) Basophils # (Auto) 0.0 x10^3/uL (0.0-0.2) Sodium Level 136 mmol/L (136-145) 139 mmol/L (136-145) Potassium Level 3.6 mmol/L (3.5-5.1) 3.7 mmol/L (3.5-5.1) Chloride Level 99 mmol/L (98-107) 102 mmol/L (98-107) Carbon Dioxide Level 24 mmol/L (21-32) 28 mmol/L (21-32) Anion Gap 13 (6-14) 9 (6-14) Blood Urea Nitrogen 23 mg/dL (8-26) 23 mg/dL (8-26) Creatinine 1.2 mg/dL (0.7-1.3) 1.0 mg/dL (0.7-1.3) Estimated GFR (Cockcroft-Gault) 58.6 72.3 BUN/Creatinine Ratio 19 (6-20) Glucose Level 311 mg/dL (70-99) 204 mg/dL (70-99) Calcium Level 8.9 mg/dL (8.5-10.1) 8.8 mg/dL (8.5-10.1) Magnesium Level 1.6 mg/dL (1.8-2.4) 2.0 mg/dL (1.8-2.4) Total Bilirubin 0.5 mg/dL (0.2-1.0) Aspartate Amino Transf (AST/SGOT) 26 U/L (15-37) Alanine Aminotransferase (ALT/SGPT) 25 U/L (16-63) Alkaline Phosphatase 67 U/L (46-116) Troponin I Quantitative < 0.017 ng/mL (0.000-0.055) DD-Aco-P-Type Natriuretic Peptide 186 pg/mL (0-449) Total Protein 7.3 g/dL (6.4-8.2) Albumin 3.4 g/dL (3.4-5.0) Albumin/Globulin Ratio 0.9 (1.0-1.7) Vitamin B12 Level 256 pg/mL (247-911) Thyroid Stimulating Hormone (TSH) 1.713 uIU/mL (0.358-3.74) Glucose (Fingerstick) 389 mg/dL (70-99) 376 mg/dL (70-99) Test 08/03/21 08:21 08/03/21 11:52 Glucose (Fingerstick) 209 mg/dL (70-99) 273 mg/dL (70-99) Laboratory Tests Test 08/02/21 17:06 08/02/21 20:20 08/03/21 06:55 08/03/21 08:21 Glucose (Fingerstick) 389 mg/dL (70-99) 376 mg/dL (70-99) 209 mg/dL (70-99) Sodium Level 139 mmol/L (136-145) Potassium Level 3.7 mmol/L (3.5-5.1) Chloride Level 102 mmol/L (98-107) Carbon Dioxide Level 28 mmol/L (21-32) Anion Gap 9 (6-14) Blood Urea Nitrogen 23 mg/dL (8-26) Creatinine 1.0 mg/dL (0.7-1.3) Estimated GFR (Cockcroft-Gault) 72.3 Glucose Level 204 mg/dL (70-99) Calcium Level 8.8 mg/dL (8.5-10.1) Magnesium Level 2.0 mg/dL (1.8-2.4) Test 08/03/21 11:52 Glucose (Fingerstick) 273 mg/dL (70-99) Images Images CT head 08/02/2021 9:02 AM No intracranial hemorrhage. No significant midline shift. Ventricles and sulci are globally prominent. Scattered foci of low attenuation within the white matter. Calcific atherosclerosis. IMPRESSION: * No acute intracranial hemorrhage. * Scattered regions of low attenuation within the white matter. Non-specific in nature but a common finding and frequently secondary to small vessel ischemic disease. Assessment/Plan Assessment/Plan Impression: Vestibular neuronitis, does have history of hearing loss and tinnitus though. No sign of central vertigo Gait disorder in part due to the vertigo as well as diabetic neuropathy Diabetic neuropathy Recommendations: Continue supportive care with physical therapy, meclizine, ondansetron I am holding off on brain MRI given the improvement and lack of findings on exam Note that he is already on statin, perhaps we could add on baby aspirin depending on his course Consider outpatient ENT follow-up or vestibular audiology evaluation Thank you for letting me help with the patient's care. INOCENCIA ALBARADO MD Aug 03, 2021 12:57
--- NOTE | 2021-08-03 14:14 | PDOC ---
[facility] PROGRESS NOTE Date of Service DOS: DATE: 08/03/21 TIME: 14:12 Chief Complaint Chief Complaint dizzyness,, not exactly Vertigo - better today- Hypomagnesemia - likely due to diuretic use. Will replace Low vitamin b12 - cyanocobalamin injection DM2 - with hyperglycemia - will place on high sliding scale, cont home meds HLD - cont home meds HTN - cont home meds URTI - on prednisone, will complete course History of Present Illness History of Present Illness less dizzy today Neuro eval, reports better, no MRI, consider aspirin, will start 81mg repeat PT eval, unsteady up today, very high fall risk, height of 6'4" and appears very unstable Vitals/I&O Vitals/I&O: Vital Signs Date Time Temp Pulse Resp B/P (MAP) Pulse Ox O2 Delivery O2 Flow Rate FiO2 08/03/21 11:57 109 162/72 08/03/21 11:00 98.0 16 93 Room Air 98.0 I & O 08/02/21 08/02/21 08/03/21 15:00 23:00 07:00 Intake Total 680 ml 300 ml Output Total 500 ml 550 ml Balance 180 ml -250 ml Physical Exam General: Alert, Oriented X3, Cooperative, No acute distress Lungs: Clear Abdomen: Normal bowel sounds, Soft, No tenderness, No hepatosplenomegaly, No masses Extremities: No clubbing, No cyanosis, No edema, Normal pulses, No tenderness/swelling Skin: No rashes, No breakdown, No significant lesion Labs Labs: Laboratory Tests Test 08/02/21 17:06 08/02/21 20:20 08/03/21 06:55 08/03/21 08:21 Glucose (Fingerstick) 389 mg/dL (70-99) 376 mg/dL (70-99) 209 mg/dL (70-99) Sodium Level 139 mmol/L (136-145) Potassium Level 3.7 mmol/L (3.5-5.1) Chloride Level 102 mmol/L (98-107) Carbon Dioxide Level 28 mmol/L (21-32) Anion Gap 9 (6-14) Blood Urea Nitrogen 23 mg/dL (8-26) Creatinine 1.0 mg/dL (0.7-1.3) Estimated GFR (Cockcroft-Gault) 72.3 Glucose Level 204 mg/dL (70-99) Calcium Level 8.8 mg/dL (8.5-10.1) Magnesium Level 2.0 mg/dL (1.8-2.4) Test 08/03/21 11:52 Glucose (Fingerstick) 273 mg/dL (70-99) Assessment and Plan Assessmemt and Plan Problems Medical Problems: (1) Vertigo Status: Acute Comment Review of Relevant I have reviewed the following items lisa (where applicable) has been applied. Medications: Current Medications Medications (Trade) Dose Ordered Sig/Jenny Route PRN Reason Start Time Stop Time Status Last Admin Dose Admin Cetirizine HCl (ZyrTEC) 10 mg DAILY PO 08/03/21 09:00 08/03/21 09:04 Finasteride (Proscar) 5 mg DAILY PO 08/03/21 09:00 08/03/21 09:04 Prednisone (Prednisone) 40 mg DAILY PO 08/03/21 09:00 08/03/21 09:04 Glipizide (Glucotrol) 10 mg BIDBFRMEAL PO 08/02/21 16:30 08/03/21 06:11 Guaifenesin (Mucinex) 1,200 mg BID PO 08/02/21 21:00 08/03/21 09:04 Insulin Glargine (Lantus Syringe) 43 unit QHS SQ 08/02/21 21:00 08/02/21 20:35 Atorvastatin Calcium (Lipitor) 20 mg QHS PO 08/02/21 21:00 08/02/21 20:33 Pantoprazole Sodium (Protonix) 40 mg DAILYAC PO 08/03/21 07:30 08/03/21 06:11 Insulin Human Lispro (HumaLOG) 0-9 UNITS TIDWMEALS SQ 08/02/21 17:00 08/03/21 11:58 Hydrochlorothiazide (Microzide) 12.5 mg DAILY PO 08/02/21 15:00 08/03/21 09:04 Lisinopril (Prinivil) 10 mg DAILY PO 08/02/21 15:00 08/03/21 09:03 Cyanocobalamin (Vitamin B-12 Inj) 1,000 mcg 1X ONCE IM 08/02/21 17:30 08/02/21 17:31 DC 08/02/21 17:17 Metoprolol Tartrate (Lopressor Vial) 5 mg Q6HRS IVP 08/02/21 18:00 08/03/21 11:57 Justifications for Admission Other Justification MARISSA SANDHU MD Aug 03, 2021 14:14
[2021-08-03] MEDS: ATORVASTATIN CALCIUM 20 MG TABLET PO SCH (20:51)
[2021-08-03] MEDS: INSULIN GLARGINE SYRINGE. SQ SCH (20:52)
[2021-08-03] MEDS ORDERED: BENZOCAINE/MENTHOL LOZENGE. PO PRN ×2 (21:15)
[2021-08-03] MEDS ORDERED: INSULIN LISPRO 300 UNITS/3 ML VIAL. SQ ONE (21:15)
[2021-08-04 02:42] VITALS: BP 124/67
[2021-08-04] MEDS: PANTOPRAZOLE 40 MG TABLET.DR. PO SCH (06:13)
[2021-08-04] MEDS: glipiZIDE 5 MG TABLET PO SCH ×2 (06:14→16:27)
[2021-08-04 07:08] VITALS: BP 138/66
[2021-08-04] MEDS: predniSONE 20 MG TABLET PO SCH (08:32)
[2021-08-04] MEDS: LISINOPRIL 10 MG TABLET PO SCH (08:32)
[2021-08-04] MEDS: FINASTERIDE 5 MG TABLET. PO SCH (08:32)
[2021-08-04] MEDS: hydroCHLOROthiazide 12.5 MG CAPSULE PO SCH (08:32)
[2021-08-04] MEDS: CETIRIZINE HCL 10 MG TABLET. PO SCH (08:32)
[2021-08-04] MEDS: ASPIRIN ENTERIC COATED 81 MG TABLET.DR. PO SCH (08:33)
[2021-08-04] MEDS: INSULIN LISPRO 300 UNITS/3 ML VIAL. SQ SCH ×3 (08:39→16:30)
--- NOTE | 2021-08-04 09:07 | PDOC ---
PROGRESS NOTES Date of Service DATE: 08/04/21 TIME: 09:05 Assessment Problems Medical Problems: (1) Vertigo Status: Acute Vestibular neuronitis, does have history of hearing loss and tinnitus though. No sign of central vertigo Gait disorder in part due to the vertigo as well as diabetic neuropathy Diabetic neuropathy Plan Given the persistence of the vertigo, I am checking a brain MRI Continue supportive care with physical therapy, meclizine, ondansetron Likely will need inpatient rehab Note that he is already on statin, perhaps we could add on baby aspirin depending on his course Consider outpatient ENT follow-up or vestibular audiology evaluation Subjective Dizziness is only a little bit better. He is sleeping in the recliner because the bed is uncomfortable Objective Vital Signs Date Time Temp Pulse Resp B/P (MAP) Pulse Ox O2 Delivery O2 Flow Rate FiO2 08/04/21 08:32 75 138/66 08/04/21 07:08 98.2 19 93 Room Air 98.2 Intake and Output 08/04/21 07:00 Intake Total 840 ml Output Total 1150 ml Balance -310 ml Intake Oral 840 ml Output Urine Total 1150 ml # Voids 1 # Bowel Movements 2 PHYSICAL EXAM Alert. Oriented to time, place and person. PERRL. EOMI. CN: no focal findings. No nystagmus elicited. Normal head thrust Muscle tone: normal. Muscle strength: 5/5 DTR: 2+ Plantar reflex: Flexor Gait: Gets dizzy when he tries to get up out of the chair, could not rise up all the way Sensory exam: Stocking loss. No cerebellar signs elicited. Review of Relevant I have reviewed the following items lisa (where applicable) has been applied. Labs Laboratory Tests Test 08/02/21 17:06 08/02/21 20:20 08/03/21 06:55 08/03/21 08:21 Glucose (Fingerstick) 389 mg/dL (70-99) 376 mg/dL (70-99) 209 mg/dL (70-99) Sodium Level 139 mmol/L (136-145) Potassium Level 3.7 mmol/L (3.5-5.1) Chloride Level 102 mmol/L (98-107) Carbon Dioxide Level 28 mmol/L (21-32) Anion Gap 9 (6-14) Blood Urea Nitrogen 23 mg/dL (8-26) Creatinine 1.0 mg/dL (0.7-1.3) Estimated GFR (Cockcroft-Gault) 72.3 Glucose Level 204 mg/dL (70-99) Calcium Level 8.8 mg/dL (8.5-10.1) Magnesium Level 2.0 mg/dL (1.8-2.4) Test 08/03/21 11:52 08/03/21 16:49 08/03/21 20:17 08/04/21 07:49 Glucose (Fingerstick) 273 mg/dL (70-99) 390 mg/dL (70-99) 391 mg/dL (70-99) 200 mg/dL (70-99) Laboratory Tests Test 08/03/21 11:52 08/03/21 16:49 08/03/21 20:17 08/04/21 07:49 Glucose (Fingerstick) 273 mg/dL (70-99) 390 mg/dL (70-99) 391 mg/dL (70-99) 200 mg/dL (70-99) Medications Current Medications Meclizine HCl (Antivert) 25 mg 1X ONCE PO Last administered on 08/02/21at 09:22; Start 08/02/21 at 09:15; Stop 08/02/21 at 09:16; Status DC Magnesium Sulfate 50 ml @ 25 mls/hr 1X ONCE IV Last administered on 08/02/21at 09:22; Start 08/02/21 at 09:45; Stop 08/02/21 at 11:44; Status DC Ondansetron HCl (Zofran) 4 mg PRN Q8HRS PRN IVP NAUSEA/VOMITING; Start at 12:30; Stop 08/02/21 at 14:30; Status DC Ondansetron HCl (Zofran) 4 mg PRN Q4HRS PRN IVP NAUSEA/VOMITING; Start at 14:30 Benzonatate (Tessalon Perle) 100 mg PRN TID PRN PO COUGH; Start 08/02/21 at 14:30 Cetirizine HCl (ZyrTEC) 10 mg DAILY PO Last administered on 08/04/21at 08:32; Start 08/03/21 at 09:00 Finasteride (Proscar) 5 mg DAILY PO Last administered on 08/04/21at 08:32; Start 08/03/21 at 09:00 Prednisone (Prednisone) 40 mg DAILY PO Last administered on 08/04/21 08:32; Start 08/03/21 at 09:00 Glipizide (Glucotrol) 10 mg BIDBFRMEAL PO Last administered on 08/04/21at 06:14; Start 08/02/21 at 16:30 Guaifenesin (Mucinex) 1,200 mg BID PO Last administered on 08/04/21at 08:33; Start 08/02/21 at 21:00 Insulin Glargine (Lantus Syringe) 43 unit QHS SQ Last administered on 08/02/21at 20:35; Start 08/02/21 at 21:00; Stop 08/03/21 at 14:07; Status DC Lisinopril (Prinivil) 10 mg DAILY PO ; Start 08/03/21 at 09:00; Stop 08/02/21 at 14:53; Status DC Atorvastatin Calcium (Lipitor) 20 mg QHS PO Last administered on 08/03/21at 20:51; Start 08/02/21 at 21:00 Pantoprazole Sodium (Protonix) 40 mg DAILYAC PO Last administered on 08/04/21at 06:13; Start 08/03/21 at 07:30 Insulin Human Lispro (HumaLOG) 0-9 UNITS TIDWMEALS SQ Last administered on 08/04/21at 08:39; Start 08/02/21 at 17:00 Dextrose (Dextrose 50%-Water Syringe) 12.5 gm PRN Q15MIN PRN IV SEE COMMENTS; Start 08/02/21 at 14:30 Meclizine HCl (Antivert) 12.5 mg PRN Q6HRS PRN PO DIZZINESS; Start 08/02/21 at 14:30 Hydrochlorothiazide (Microzide) 12.5 mg DAILY PO ; Start 08/03/21 at 09:00; Stop 08/02/21 at 14:53; Status DC Hydrochlorothiazide (Microzide) 12.5 mg DAILY PO Last administered on 08/04/21at 08:32; Start 08/02/21 at 15:00 Lisinopril (Prinivil) 10 mg DAILY PO Last administered on 08/04/21at 08:32; Start 08/02/21 at 15:00 Cyanocobalamin (Vitamin B-12 Inj) 1,000 mcg 1X ONCE IM Last administered on 08/02/21at 17:17; Start 08/02/21 at 17:30; Stop 08/02/21 at 17:31; Status DC Metoprolol Tartrate (Lopressor Vial) 5 mg Q6HRS IVP Last administered on 08/03/21at 16:57; Start 08/02/21 at 18:00; Stop 08/03/21 at 22:23; Status DC Metoprolol Tartrate (Lopressor Vial) 5 mg PRN Q5MIN PRN IVP TACHYCARDIA; Start 08/02/21 at 18:00; Stop 08/03/21 at 22:23; Status DC Aspirin (Ecotrin) 81 mg DAILYWBKFT PO Last administered on 08/04/21at 08:33; Start 08/04/21 at 08:00 Insulin Glargine (Lantus Syringe) 47 unit QHS SQ Last administered on 08/03/21at 20:52; Start 08/03/21 at 21:00 Throat Lozenges (Cepacol Sore Throat Lozenge) 1 toan PRN Q2HRS PRN PO SORE THROAT; Start 08/03/21 at 21:15; Status Cancel Insulin Human Lispro (HumaLOG) 9 units 1X ONCE SQ Last administered on 08/03/21at 22:02; Start 08/03/21 at 21:15; Stop 08/03/21 at 21:16; Status DC Throat Lozenges (Cepacol Sore Throat Lozenge) 1 toan PRN Q2HRS PRN PO SORE THROAT Last administered on 08/03/21at 21:51; Start 08/03/21 at 21:15 Active Scripts Active Reported Mucinex (Guaifenesin) 1,200 Mg Tbmp.12hr 1 Tab PO BID Prednisone 20 Mg Tablet 2 Tab PO DAILY Benzonatate 100 Mg Capsule 1 Cap PO TID PRN Lisinopril-Hctz 10-12.5 Mg Tab (Lisinopril/Hydrochlorothiazide) 1 Each Tablet 1 Tab PO DAILY Zyrtec (Cetirizine Hcl) 10 Mg Tablet 1 Tab PO DAILY Omeprazole 20 Mg Tablet.dr 20 Mg PO DAILY Glipizide 10 Mg Tablet 10 Mg PO BID Finasteride 5 Mg Tablet 5 Mg PO DAILY Lovastatin 40 Mg Tablet 40 Mg PO BID Metformin Hcl 1,000 Mg Tablet 1,000 Mg PO BIDWMEALS Lantus Solostar (Insulin Glargine,Hum.rec.anlog) 100 Unit/1 Ml Insuln.pen 43 Unit SQ HS Vitals/I & O Vital Sign - Last 24 Hours 08/03/21 08/03/21 08/03/21 08/03/21 11:00 11:57 15:00 16:57 Temp 98.0 97.9 98.0 97.9 Pulse 90 109 100 109 Resp 16 16 B/P (MAP) 162/72 (102) 162/72 120/56 (77) 162/72 Pulse Ox 93 91 O2 Delivery Room Air Room Air 08/03/21 08/03/21 08/03/21 08/04/21 19:00 20:09 23:00 02:42 Temp 97.9 98.0 97.6 97.9 98.0 97.6 Pulse 92 96 77 Resp 18 18 19 B/P (MAP) 113/56 (75) 129/63 (85) 124/67 (86) Pulse Ox 91 92 93 O2 Delivery Room Air Room Air Room Air Room Air 08/04/21 08/04/21 07:08 08:32 Temp 98.2 98.2 Pulse 75 75 Resp 19 B/P (MAP) 138/66 (90) 138/66 Pulse Ox 93 O2 Delivery Room Air Intake and Output 08/03/21 08/03/21 08/04/21 15:00 23:00 07:00 Intake Total 360 ml 180 ml 300 ml Output Total 700 ml 450 ml Balance -340 ml -270 ml 300 ml Justicifation of Admission Dx: Justifications for Admission: Justification of Admission Dx: N/A INOCENCIA ALBARADO MD Aug 04, 2021 09:07
[2021-08-04 11:00] VITALS: BP 136/70
--- NOTE | 2021-08-04 11:07 | PDOC ---
[facility] [facility] PROGRESS NOTE Date of Service DOS: DATE: 08/04/21 TIME: 11:06 Chief Complaint Chief Complaint Vestibular neuronitis, not Vertigo - Hypomagnesemia - likely due to diuretic use. Will replace Low vitamin b12 - cyanocobalamin injection DM2 - with hyperglycemia - will place on high sliding scale, cont home meds HLD - cont home meds HTN - cont home meds URTI - on prednisone, will complete course History of Present Illness History of Present Illness feels about the same MRI ordered Neuro eval eval fall risk noted aspirin, 81mg Vitals/I&O Vitals/I&O: Vital Signs Date Time Temp Pulse Resp B/P (MAP) Pulse Ox O2 Delivery O2 Flow Rate FiO2 08/04/21 08:32 75 138/66 08/04/21 08:00 Room Air 08/04/21 07:08 98.2 19 93 98.2 I & O 08/03/21 08/03/21 08/04/21 15:00 23:00 07:00 Intake Total 360 ml 180 ml 300 ml Output Total 700 ml 450 ml Balance -340 ml -270 ml 300 ml Physical Exam General: Alert, Oriented X3, Cooperative, No acute distress Heart: No murmurs Lungs: Clear Abdomen: Normal bowel sounds, Soft, No tenderness, No hepatosplenomegaly, No masses Extremities: No clubbing, No cyanosis, No edema, Normal pulses, No tenderness/swelling Skin: No rashes, No breakdown, No significant lesion Labs Labs: Laboratory Tests Test 08/03/21 11:52 08/03/21 16:49 08/03/21 20:17 08/04/21 07:49 Glucose (Fingerstick) 273 mg/dL (70-99) 390 mg/dL (70-99) 391 mg/dL (70-99) 200 mg/dL (70-99) Assessment and Plan Assessmemt and Plan Problems Medical Problems: (1) Vertigo Status: Acute Comment Review of Relevant I have reviewed the following items lisa (where applicable) has been applied. Medications: Current Medications Medications (Trade) Dose Ordered Sig/Jenny Route PRN Reason Start Time Stop Time Status Last Admin Dose Admin Aspirin (Ecotrin) 81 mg DAILYWBKFT PO 08/04/21 08:00 08/04/21 08:33 Insulin Glargine (Lantus Syringe) 47 unit QHS SQ 10/28/21 21:00 08/03/21 20:52 Insulin Human Lispro (HumaLOG) 9 units 1X ONCE SQ 08/03/21 21:15 08/03/21 21:16 DC 08/03/21 22:02 Throat Lozenges (Cepacol Sore Throat Lozenge) 1 toan PRN Q2HRS PRN PO SORE THROAT 08/03/21 21:15 08/03/21 21:51 Justifications for Admission Other Justification MARISSA SANDHU MD Aug 04, 2021 11:07
--- NOTE | 2021-08-04 13:58 | RAD ---
EXAM: Brain MRI without contrast. HISTORY: Vertigo. TECHNIQUE: Multiplanar, multisequence magnetic resonance imaging of the brain was performed without c ontrast. COMPARISON: CT dated 08/02/2021. FINDINGS: There is no restricted diffusion to suggest acute or subacute infarction. There is no susce ptibility effect to suggest hemorrhage. There is no mass effect or midline shift. There is no hydroce phalus. There is ventricular enlargement due to cerebral atrophy. There is mild nonspecific signal ch burke within the cerebral white matter, likely due to chronic small vessel disease. There is evidence of lens surgery. There are tiny air-fluid levels within the maxillary sinuses. There is paranasal sin us because of thickening and there are tiny axillary sinus mucous retention cyst. There is a small am ount of fluid within the left mastoid air cells. There are normal flow voids within the cerebral vess els. There is no suspicious calvarial lesion. IMPRESSION: 1. No acute intercranial finding. 2. Minimal cerebral white matter changes, likely due to chronic small vessel disease. 3. Cerebral atrophy. Electronically signed by: Lizbeth Everett MD (08/04/2021 1:56 PM) [id number]
[2021-08-04 15:00] VITALS: BP 134/65
[2021-08-04 19:00] VITALS: BP 140/65
[2021-08-04] MEDS: ATORVASTATIN CALCIUM 20 MG TABLET PO SCH (21:14)
[2021-08-04] MEDS: INSULIN GLARGINE SYRINGE. SQ SCH (21:18)
[2021-08-04 22:46] VITALS: BP 127/63
[2021-08-05 02:56] VITALS: BP 129/64
[2021-08-05 07:47] VITALS: BP 153/90
[2021-08-05] MEDS: hydroCHLOROthiazide 12.5 MG CAPSULE PO SCH (08:52)
[2021-08-05] MEDS: FINASTERIDE 5 MG TABLET. PO SCH (08:52)
[2021-08-05] MEDS: CETIRIZINE HCL 10 MG TABLET. PO SCH (08:53)
[2021-08-05] MEDS: predniSONE 20 MG TABLET PO SCH (08:53)
[2021-08-05] MEDS: glipiZIDE 5 MG TABLET PO SCH ×2 (08:53→17:14)
[2021-08-05] MEDS: PANTOPRAZOLE 40 MG TABLET.DR. PO SCH (08:53)
[2021-08-05] MEDS: ASPIRIN ENTERIC COATED 81 MG TABLET.DR. PO SCH (08:53)
[2021-08-05] MEDS: LISINOPRIL 10 MG TABLET PO SCH (08:54)
[2021-08-05] MEDS: INSULIN LISPRO 300 UNITS/3 ML VIAL. SQ SCH ×3 (08:56→17:15)
--- NOTE | 2021-08-05 09:47 | PDOC ---
[facility] [facility] PROGRESS NOTE Date of Service DOS: DATE: 08/05/21 TIME: 09:46 Chief Complaint Chief Complaint vestibular neuritis cognitive decline, chronic small vessel disease weakness and debility, acquired, Hypomagnesemia - likely due to diuretic use. Will replace Low vitamin b12 - cyanocobalamin injection DM2 - with hyperglycemia - will place on high sliding scale, cont home meds HLD - cont home meds HTN - cont home meds URTI - on prednisone, will complete course History of Present Illness History of Present Illness MRI IMPRESSION: 08/04 1. No acute intercranial finding. 2. Minimal cerebral white matter changes, likely due to chronic small vessel disease. 3. Cerebral atrophy. feels about the same MRI ordered Neuro eval eval fall risk noted aspirin, 81mg Vitals/I&O Vitals/I&O: Vital Signs Date Time Temp Pulse Resp B/P (MAP) Pulse Ox O2 Delivery O2 Flow Rate FiO2 08/05/21 08:54 72 153/90 08/05/21 07:47 19 95 Room Air 08/05/21 02:56 97.7 97.7 I & O 08/04/21 08/04/21 08/05/21 15:00 23:00 07:00 Intake Total 360 ml 980 ml 300 ml Output Total 350 ml 900 ml 725 ml Balance 10 ml 80 ml -425 ml Physical Exam General: Alert, Oriented X3, Cooperative, No acute distress Heart: No murmurs Lungs: Clear Abdomen: Normal bowel sounds, Soft, No tenderness, No hepatosplenomegaly, No masses Extremities: No clubbing, No cyanosis, No edema, Normal pulses, No tenderness/swelling Skin: No rashes, No breakdown, No significant lesion Labs Labs: Laboratory Tests Test 08/04/21 11:41 08/04/21 11:42 08/04/21 16:23 08/04/21 20:10 Glucose (Fingerstick) 284 mg/dL (70-99) 296 mg/dL (70-99) 369 mg/dL (70-99) 379 mg/dL (70-99) Test 08/05/21 07:54 Glucose (Fingerstick) 227 mg/dL (70-99) Assessment and Plan Assessmemt and Plan Problems Medical Problems: (1) Vertigo Status: Acute Comment Review of Relevant I have reviewed the following items lisa (where applicable) has been applied. Justifications for Admission Other Justification MARISSA SANDHU MD Aug 05, 2021 09:47
[2021-08-05] MEDS ORDERED: guaiFENesin/CODEINE 100mg/10mg 5 ML LIQUID PO PRN (10:15)
[2021-08-05 10:33] VITALS: BP 147/77
[2021-08-05] MEDS ORDERED: CYANOCOBALAMIN (VITAMIN B-12) 1,000 MCG/ML VIAL. IM ONE (11:00)
[2021-08-05] MEDS: VITAMIN B12,B9,B6 COMPLEX 1 TABLET. PO SCH (11:57)
[2021-08-05] MEDS: metFORMIN 500 MG TABLET PO SCH ×2 (11:57→17:13)
[2021-08-05] MEDS ORDERED: ENOXAPARIN 40 MG/0.4 ML SYRINGE. SQ SCH (12:00)
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
[2021-08-05 14:52] VITALS: BP 143/70
[2021-08-05 19:25] VITALS: BP 126/64
[2021-08-05] MEDS: ATORVASTATIN CALCIUM 20 MG TABLET PO SCH (20:35)
[2021-08-05] MEDS: INSULIN GLARGINE SYRINGE. SQ SCH (20:40)
[2021-08-05 22:39] VITALS: BP 141/82
[2021-08-06 02:46] VITALS: BP 127/77
[2021-08-06 07:55] VITALS: BP 147/73
[2021-08-06] MEDS: INSULIN LISPRO 300 UNITS/3 ML VIAL. SQ SCH (08:00)
[2021-08-06 08:35] VITALS: BP 147/73
[2021-08-06] MEDS: ASPIRIN ENTERIC COATED 81 MG TABLET.DR. PO SCH (08:35)
[2021-08-06] MEDS: LISINOPRIL 10 MG TABLET PO SCH (08:35)
[2021-08-06] MEDS: glipiZIDE 5 MG TABLET PO SCH (08:35)
[2021-08-06] MEDS: CETIRIZINE HCL 10 MG TABLET. PO SCH (08:35)
[2021-08-06] MEDS: FINASTERIDE 5 MG TABLET. PO SCH (08:36)
[2021-08-06] MEDS: VITAMIN B12,B9,B6 COMPLEX 1 TABLET. PO SCH (08:36)
[2021-08-06] MEDS: hydroCHLOROthiazide 12.5 MG CAPSULE PO SCH (08:36)
[2021-08-06] MEDS: metFORMIN 500 MG TABLET PO SCH (08:36)
[2021-08-06] MEDS: PANTOPRAZOLE 40 MG TABLET.DR. PO SCH (08:36)
[2021-08-06] MEDS ORDERED: predniSONE 20 MG TABLET PO SCH (09:00)
[2021-08-06] MEDS ORDERED: CYAN1TAB19 PO (09:54)
[2021-08-06] MEDS ORDERED: PRED-220 PO (09:54)
[2021-08-06] MEDS ORDERED: ASPI-886 PO (09:54)
--- NOTE | 2021-08-06 09:58 | SNU/HH DC ---
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 Will replace Low vitamin b12 - cyanocobalamin injection DM2 - with hyperglycemia - on insulin HLD - HTN - URTI - History of Present Illness Problems Medical Problems: (1) Vertigo Status: Acute Condition on Discharge: Stable CODE STATUS: Code Status: Full HOME HEALTH: Face to Face: I certify this patient is under my care and that I had a face to face encounter that meets the physician face to face encounter requirements with this patient on 08/06 Medical Complications: DM, Other (vestibular neurotitis, unstable and fall risk) RN For Eval/Treatment: Yes Physical Therapy For: Evalulation/Treatment Occupational Therapy For: Evaluation/Treatment Pt Meets Homebound Status: Unsteady balance w/ amb,, Limited distance walking POST DISCHARGE ORDERS: Activity Instructions for Disc: No restrictions DIET AFTER DISCHARGE: ADA FOLLOW-UP: Follow up with: primary care TREATMENT/EQUIPMENT ORDERS: Adaptive Equipment Issued: Front wheeled walker CERTIFICATION STATEMENT: Certification Statement: Certification Statement: Based on the above finding, I certify that this patient is confined to the home and needs intermittent snf care, physical therapy and/or speech therapy, or continues to need occupational therapy.~ This patient is under my care, and I have initiated the establishment of the plan of care.~ This patient will be followed by myself or a community physician who will periodically review the plan of care. Home Meds Active Scripts Prednisone (PREDNISONE ) 10 Mg Tablet, 10 MG PO UD for ear inflammation, #6 TAB 0 Refills Take 2 tablets by mouth daily for 2 days, then take 1 tablets by mouth daily for 2 days, then stop. Prov:MARISSA SANDHU MD 08/06/21 Cyanocobalamin/Fa/Pyridoxine (FOLBIC TABLET) 1 Each Tablet, 1 TAB PO DAILY for vitamin replacement, #30 TAB Prov:MARISSA SANDHU MD 08/06/21 Aspirin (ASPIRIN EC) 81 Mg Tablet.dr, 81 MG PO DAILYWBKFT for prevent CVA, #100 TAB.SR Prov:MARISSA SANDHU MD 08/06/21 Reported Medications Guaifenesin (MUCINEX) 1,200 Mg Tbmp.12hr, 1 TAB PO BID for cough 08/02/21 Benzonatate (BENZONATATE) 100 Mg Capsule, 1 CAP PO TID PRN for COUGH 08/02/21 Lisinopril/Hydrochlorothiazide (LISINOPRIL-HCTZ 10-12.5 MG TAB) 1 Each Tablet, 1 TAB PO DAILY for HTN, #90 TAB 3 Refills 08/02/21 Cetirizine Hcl (ZYRTEC) 10 Mg Tablet, 1 TAB PO DAILY for ALLERGIES, #30 TAB 2 Refills 01/27/18 Omeprazole (OMEPRAZOLE) 20 Mg Tablet.dr, 20 MG PO DAILY for GERD, TAB 11/15/17 Glipizide (GLIPIZIDE) 10 Mg Tablet, 10 MG PO BID for DIABETES, TAB 11/15/17 Finasteride (FINASTERIDE) 5 Mg Tablet, 5 MG PO DAILY for PROSTATE, TAB 11/15/17 Lovastatin (LOVASTATIN) 40 Mg Tablet, 40 MG PO BID for CHOLESTEROL, TAB 11/15/17 Metformin Hcl (METFORMIN HCL) 1,000 Mg Tablet, 1000 MG PO BIDWMEALS for DIABETES, TAB 11/15/17 Insulin Glargine,Hum.rec.anlog (LANTUS SOLOSTAR) 100 Unit/1 Ml Insuln.pen, 43 UNIT SQ HS for DIABETES, SYR 11/15/17 Discontinued Reported Medications Prednisone (PREDNISONE) 20 Mg Tablet, 2 TAB PO DAILY for cough, congestion 08/02/21 Fluticasone Propionate (Flonase Allergy Relief) 9.9 Ml [place].susp, 2 SPRAYS NS DAILY for ALLERGIES, BOTTLE 01/27/18 MARISSA SANDHU MD Aug 06, 2021 09:58
--- NOTE | 2021-08-06 10:00 | PDOC3 ---
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 Will replace Low vitamin b12 - cyanocobalamin injection DM2 - with hyperglycemia - on insulin HLD - HTN - URTI - Problems Medical Problems: (1) Vertigo Status: Acute Brief Hospital Course Allergies Allergies Coded Allergies Type Severity Reaction Last Updated Verified No Known Drug Allergies 08/02/21 No Vital Signs Vital Signs Date Time Temp Pulse Resp B/P (MAP) Pulse Ox O2 Delivery O2 Flow Rate FiO2 08/06/21 08:35 Room Air 08/06/21 08:35 82 147/73 08/06/21 07:55 98.1 18 95 98.1 Lab Results Laboratory Tests Test 08/04/21 11:41 08/04/21 11:42 08/04/21 16:23 08/04/21 20:10 Glucose (Fingerstick) 284 mg/dL (70-99) 296 mg/dL (70-99) 369 mg/dL (70-99) 379 mg/dL (70-99) Test 08/05/21 07:54 08/05/21 11:11 08/05/21 16:11 08/05/21 20:33 Glucose (Fingerstick) 227 mg/dL (70-99) 280 mg/dL (70-99) 431 mg/dL (70-99) 335 mg/dL (70-99) Test 08/06/21 08:09 Glucose (Fingerstick) 147 mg/dL (70-99) Laboratory Tests Test 08/05/21 11:11 08/05/21 16:11 08/05/21 20:33 08/06/21 08:09 Glucose (Fingerstick) 280 mg/dL (70-99) 431 mg/dL (70-99) 335 mg/dL (70-99) 147 mg/dL (70-99) Brief Hospital Course Mr. Ayers is a 80 old right-handed male admit for new dizziness and difficulty walking, with new room spinning and vertigo and a retropulsion. eval for vertigo, Neuro eval, seen by Ken and [facility] MRI head OK, small vessel disease noted Discharge Information Condition at Discharge: Improved Follow Up: Weeks Disposition/Orders: D/C to Home w/ HH Scheduled Aspirin (Aspirin Ec) 81 Mg Tablet.dr, 81 MG PO DAILYWBKFT for prevent CVA, #100 Prescribed by: MARISSA SANDHU on 08/06/21 0954 Cetirizine Hcl (Zyrtec) 10 Mg Tablet, 1 TAB PO DAILY for ALLERGIES, #30 Ref 2 (Reported) Entered as Reported by: KRYSTYNA JACOBSEN on 01/27/181437 Last Action: Continued on 08/02/211429 by FABIENNE CORREIA MD Cyanocobalamin/Fa/Pyridoxine (Folbic Tablet) 1 Each Tablet, 1 TAB PO DAILY for vitamin replacement, #30 Prescribed by: MARISSA SANDHU on 08/06/21 0954 Finasteride (Finasteride) 5 Mg Tablet, 5 MG PO DAILY for PROSTATE, (Reported) Entered as Reported by: DIANE BARNES on 11/15/171753 Last Action: Continued on 08/02/211429 by FABIENNE CORREIA MD Glipizide (Glipizide) 10 Mg Tablet, 10 MG PO BID for DIABETES, (Reported) Entered as Reported by: DIANE BARNES on 11/15/171753 Last Action: Converted on 08/02/211429 by FABIENNE CORREIA MD Guaifenesin (Mucinex) 1,200 Mg Tbmp.12hr, 1 TAB PO BID for cough, (Reported) Entered as Reported by: SUKI JONES RN on 08/02/211348 Last Action: Converted on 08/02/211429 by FABIENNE CORREIA MD Insulin Glargine,Hum.rec.anlog (Lantus Solostar) 100 Unit/1 Ml Insuln.pen, 43 UNIT SQ HS for DIABETES, (Reported) Entered as Reported by: DIANE BARNES on 11/15/171743 Last Action: Converted on 08/02/211429 by FABIENNE CORREIA MD Lisinopril/Hydrochlorothiazide (Lisinopril-Hctz 10-12.5 Mg Tab) 1 Each Tablet, 1 TAB PO DAILY for HTN, #90 Ref 3 (Reported) Entered as Reported by: SUKI JONES RN on 08/02/211348 Last Action: Converted on 08/02/211429 by FABIENNE CORREIA MD Lovastatin (Lovastatin) 40 Mg Tablet, 40 MG PO BID for CHOLESTEROL, (Reported) Entered as Reported by: DIANE BARNES on 11/15/171753 Last Action: Converted on 08/02/211429 by FABIENNE CORREIA MD Metformin Hcl (Metformin Hcl) 1,000 Mg Tablet, 1,000 MG PO BIDWMEALS for DIABETES, (Reported) Entered as Reported by: DIANE BARNES on 11/15/171747 Last Action: Converted on 08/05/21 1013 by MARISSA SANDHU Omeprazole (Omeprazole) 20 Mg Tablet.dr, 20 MG PO DAILY for GERD, (Reported) Entered as Reported by: DIANE BARNES on 11/15/171753 Last Action: Converted on 08/02/211429 by FABIENNE CORREIA MD Prednisone (Prednisone ) 10 Mg Tablet, 10 MG PO UD for ear inflammation, #6 Ref 0 Take 2 tablets by mouth daily for 2 days, then take 1 tablets by mouth daily for 2 days, then stop. Prescribed by: MARISSA SANDHU on 08/06/21 0954 Scheduled PRN Benzonatate (Benzonatate) 100 Mg Capsule, 1 CAP PO TID PRN for COUGH, (Reported) Entered as Reported by: SUKI JONES RN on 08/02/211348 Last Action: Continued on 08/02/211429 by FABIENNE CORREIA MD Discontinued Medications Fluticasone Propionate (Flonase Allergy Relief) 9.9 Ml [place].susp, 2 SPRAYS NS DAILY for ALLERGIES, (Reported) Entered as Reported by: KRYSTYNA JACOBSEN on 01/27/18 1438 Last Action: Discontinued on 08/02/211348 by SUKI JONES RN Prednisone (Prednisone) 20 Mg Tablet, 2 TAB PO DAILY for cough, congestion, (Reported) Entered as Reported by: SUKI JONES RN on 08/02/211348 Last Action: Continued on 08/02/211429 by FABIENNE CORREIA MD Patient Instructions Patient Instructions face to face and coordination of care 38 minutes Justicifation of Admission Dx: Justifications for Admission: Justification of Admission Dx: N/A MARISSA SANDHU MD 31, 2021 10:00
--- NOTE | 2021-08-06 11:27 | NUR ---
DISCHARGE PIV ET TELE DISCONTINUED AT 1055, PT DISCHARGE INFORMATION COVERED WITH PT ET S/O. ALL QUESTIONS ANSWERED TO PT SATISFACTION. HH SERVICES WILL BE SET UP BY NURSING MASTER [place] [place], ET HH COMPLANY WILL CONTACT PATIENT. ESCORTED TO CAR IN WHEELCHAIR. TRANSFERRED WITH SBA INTO VEHICLE WITH NO ISSUES.
== END 2021-08-06 11:05 | disposition home health service (06) | DRG 149 ==
LOC: ER 07:58 → 6 SOUTH 12:15
PROVIDERS: ADMIT Internal Medicine; ATTEND Internal Medicine
DX: H81.22 Vestibular neuronitis, left ear (principal); E11.65 Type 2 diabetes mellitus with hyperglycemia; H81.10 Benign paroxysmal vertigo, unspecified ear; E11.40 Type 2 diabetes mellitus with diabetic neuropathy, unspecified; E78.00 Pure hypercholesterolemia, unspecified; E78.5 Hyperlipidemia, unspecified; E83.42 Hypomagnesemia; H55.09 Other forms of nystagmus; H93.19 Tinnitus, unspecified ear; I10 Essential (primary) hypertension; J06.9 Acute upper respiratory infection, unspecified; T50.2X5A Adverse effect of carbonic-anhydrase inhibitors, benzothiadiazides and other diuretics, initial encounter; Z20.822 Contact with and (suspected) exposure to COVID-19; Z79.4 Long term (current) use of insulin; Z82.49 Family history of ischemic heart disease and other diseases of the circulatory system; Z83.3 Family history of diabetes mellitus; Z91.81 History of falling; Z96.653 Presence of artificial knee joint, bilateral; K21.9 Gastro-esophageal reflux disease without esophagitis; M19.90 Unspecified osteoarthritis, unspecified site; E11.51 Type 2 diabetes mellitus with diabetic peripheral angiopathy without gangrene
CPT/HCPCS: 36415; 70450; 70551; 71045; 80048; 80053; 82607; 82962; 83735; 83880; 84443; 84484; 85025; 93005; 96365; 96366; J1650; J1815; J3420; J3475; J3490; J7512; 95992-GP; 97110-GP; 97116-GP; 97530-GP; 99285-25; G0378; J8597